=== PATIENT | male | born 1980 | race Caucasian/White ===

== ENCOUNTER 2021-02-08 13:49 | Emergency (ER) | payer SELFPAY ==
[~2021-02-08] VITALS: Ht 195 cm; Wt 90.7 kg
--- NOTE | 2021-02-08 15:11 | ED EENT ---
History of Present Illness General Chief Complaint: Oral/Throat Problems Stated Complaint: SOB,SORE THROAT Nursing Triage Note: PT PRESENTS TO ED VIA POV FROM [facility] WITH COMPLAINTS OF SORE THROAT X 4-5 DAYS. PT ALSO REPORTS SOME SOA. Source: patient Exam Limitations: no limitations History of Present Illness Date Seen by Provider: Feb 08, 2021 Time Seen by Provider: 15:10 Initial Comments To ER with a sore throat that began 4 days ago. He then noticed some enlarged swollen lymph nodes under the mandible mostly on the right side. Timing/Duration: abrupt Severity: moderate Location: throat Prearrival Treatment: no prearrival treatment Associated Symptoms: denies symptoms Allergies and Home Medications Allergies Coded Allergies: No Known Drug Allergies (Unverified , 02/08/21) Patient Home Medication List Home Medication List Reviewed: Yes Review of Systems Review of Systems Constitutional: see HPI; No chills, No fever Eyes: No Symptoms Reported Ears: No Symptoms Reported Nose: no symptoms reported Mouth: no symptoms reported Throat: no symptoms reported Respiratory: no symptoms reported Cardiovascular: no symptoms reported Musculoskeletal: no symptoms reported Past Bezzubq-Wisuua-Jihsuf Hx Patient Social History Tobacco Use?: Yes Tobacco type used: Cigarettes Smoking Status: Current Everyday Smoker Substance use?: No Alcohol Use?: Yes Alcohol Frequency: Once in a while Physical Exam Vital Signs Vital Signs - First Documented 02/08/21 14:25 Temp 36.4 Pulse 100 Resp 18 B/P (MAP) 120/95 (103) Pulse Ox 98 Height, Weight, BMI Height: '" Weight: lbs. oz. kg; 23.00 BMI Method: General Appearance: WD/WN, no apparent distress Eyes: bilateral eye normal inspection, bilateral eye PERRL, bilateral eye EOMI Ears: bilateral ear auricle normal, bilateral ear canal normal, bilateral ear TM normal Mouth/Throat: mandibular swelling, other (Minimal pharyngeal erythema without exudate or apparent uvular deviation. There is significantly enlarged submandibular lymph node mostly on the right and a submental lymph node palpable as well.) Neck: non-tender, full range of motion Respiratory: normal breath sounds, no respiratory distress, no accessory muscle use Neurologic/Psychiatric: alert, normal mood/affect, oriented x 3 Skin: normal color, warm/dry Progress/Results/Core Measures Results/Orders Lab Results Laboratory Tests Test 02/08/21 14:17 02/08/21 15:16 Range/Units Influenza Type A (RT-PCR) Not Detected Not Detecte Influenza Type B (RT-PCR) Not Detected Not Detecte SARS-CoV-2 RNA (RT-PCR) Not Detected Not Detecte Group A Streptococcus Screen NEGATIVE NEGATIVE White Blood Count 17.4 H 4.3-11.0 10^3/uL Red Blood Count 5.40 4.30-5.52 10^6/uL Hemoglobin 17.6 13.3-17.7 g/dL Hematocrit 52 40-54 % Mean Corpuscular Volume 96 80-99 fL Mean Corpuscular Hemoglobin 33 25-34 pg Mean Corpuscular Hemoglobin Concent 34 32-36 g/dL Red Cell Distribution Width 13.0 10.0-14.5 % Platelet Count 303 130-400 10^3/uL Mean Platelet Volume 8.5 L 9.0-12.2 fL Immature Granulocyte % (Auto) 0 % Neutrophils (%) (Auto) 78 H 42-75 % Lymphocytes (%) (Auto) 12 12-44 % Monocytes (%) (Auto) 9 0-12 % Eosinophils (%) (Auto) 1 0-10 % Basophils (%) (Auto) 0 0-10 % Neutrophils # (Auto) 13.5 H 1.8-7.8 X 10^3 Lymphocytes # (Auto) 2.1 1.0-4.0 X 10^3 Monocytes # (Auto) 1.5 H 0.0-1.0 X 10^3 Eosinophils # (Auto) 0.2 0.0-0.3 10^3/uL Basophils # (Auto) 0.1 0.0-0.1 10^3/uL Immature Granulocyte # (Auto) 0.0 0.0-0.1 10^3/uL Neutrophils % (Manual) 72 % Lymphocytes % (Manual) 13 % Monocytes % (Manual) 11 % Band Neutrophils 4 % Blood Morphology Comment NORMAL Sodium Level 136 135-145 MMOL/L Potassium Level 4.8 3.6-5.0 MMOL/L Chloride Level 100 98-107 MMOL/L Carbon Dioxide Level 23 21-32 MMOL/L Anion Gap 13 5-14 MMOL/L Blood Urea Nitrogen 9 7-18 MG/DL Creatinine 0.96 0.60-1.30 MG/DL Estimat Glomerular Filtration Rate 86 BUN/Creatinine Ratio 9 Glucose Level 92 70-105 MG/DL Calcium Level 10.3 H 8.5-10.1 MG/DL Corrected Calcium 8.5-10.1 MG/DL Total Bilirubin 1.1 H 0.1-1.0 MG/DL Aspartate Amino Transf (AST/SGOT) 33 5-34 U/L Alanine Aminotransferase (ALT/SGPT) 45 0-55 U/L Alkaline Phosphatase 75 40-136 U/L Total Protein 8.5 H 6.4-8.2 GM/DL Albumin 4.6 H 3.2-4.5 GM/DL Procalcitonin 0.05 <0.10 NG/ML Monoscreen NEGATIVE NEGATIVE My Orders Orders - CALISTA GUPTA [employer] Cbc With Automated Diff (02/08/21 15:21) Comprehensive Metabolic Panel (02/08/21 15:21) Ed Iv/Invasive Line Start (02/08/21 15:21) Monotest (02/08/21 15:21) Ct Neck (Soft Tissue) W (02/08/21 15:21) Ketorolac Injection (Toradol Injection) (02/08/21 15:30) Dexamethasone Injection (Decadron Inje (02/08/21 15:30) Ceftriaxone (Rocephin) (02/08/21 15:30) Iohexol Injection (Omnipaque 350 Mg/Ml 1 (02/08/21 15:45) Received Contrast (Hold Metformin- Contr (02/08/21 15:45) Ns (Ivpb) (Sodium Chloride 0.9% Ivpb Bag (02/08/21 15:45) Manual Differential (02/08/21 15:16) Procalcitonin (Pct) (02/08/21 15:40) Medications Given in ED Current Medications Medications Dose Ordered Sig/Espinoza Route Start Time Stop Time Status Last Admin Dose Admin Ceftriaxone Sodium 1000 mg/ Sterile Water 10 ml @ 200 mls/hr ONCE ONCE IV 02/08/21 15:30 02/08/21 15:32 DC 02/08/21 15:35 200 MLS/HR Dexamethasone Sodium Phosphate 10 mg ONCE ONCE IV 02/08/21 15:30 02/08/21 15:31 DC 02/08/21 15:35 10 MG Iohexol 75 ml ONCE ONCE IV 02/08/21 15:45 02/08/21 15:46 DC 02/08/21 15:49 75 ML Ketorolac Tromethamine 15 mg ONCE ONCE IVP 02/08/21 15:30 02/08/21 15:31 DC 02/08/21 15:36 15 MG Sodium Chloride 100 ml ONCE ONCE IV 02/08/21 15:45 02/08/21 15:46 DC 02/08/21 15:49 80 ML Vital Signs/I&O 02/08/21 14:25 Temp 36.4 Pulse 100 Resp 18 B/P (MAP) 120/95 (103) Pulse Ox 98 Blood Pressure Mean: 103 Departure Communication (Admissions) 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 BB placed in the area of concern. No history of cancer. EXAM: Axial CT scan of the neck soft tissue performed with 75 mL of Omnipaque 350 IV contrast. Sagittal and coronal reformatted images were created. Auto Exposure Controls were utilized during the CT exam to meet ALARA standards for radiation dose reduction. COMPARISON: None. FINDINGS: The nasopharynx, oropharynx, hypopharynx and laryngeal soft tissue structures are unremarkable and symmetric. The visualized portions of the lower cavity, tongue and sublingual regions are unremarkable. There is fat stranding along the right side of the neck extending from the right submandibular region to the level of thyroid. There is also thickening of the right platysmas muscle. There is minimal fat stranding on the left side of the lower neck region. There is bilateral lymphadenopathy seen. Largest marker lymph node in the left neck in the 2A region measures 2.1 cm x 1.1 cm. There is no bony erosive or destructive process involving the right mandibular or maxillary region. The right submandibular gland is mildly prominent compared to left side. There is inflammation adjacent to this right parotid gland. There are no salivary gland stones seen. Remainder of the parotid glands are unremarkable. Thyroid gland is unremarkable. Visualized upper lung becerra are clear. Cervical spine is unremarkable. Limited visualization of the intracranial structures is unremarkable. IMPRESSION: 1: There is a moderate amount of soft tissue swelling involving the right side of the neck and small amount involving the left side of neck and there is bilateral cervical lymphadenopathy. There is mild prominence of the right submandibular gland. Unknown if this is related to sialadenitis or adjacent reactive changes to the right submandibular gland. There is no stone or mass seen. There is no neck soft tissue abscess. 2: There is no bony destructive process involving the right mandibular region and the teeth are not well visualized on this exam. Clinical correlation for dental concern is suggested. 3: There is no other significant abnormality. Dictated on workstation # [id number] Dict: 02/08/21 1627 Trans: 02/08/21 1639 [facility] [id number] Interpreted by: JAMIE ARNDT MD Electronically signed by: Impression Primary Impression: Lymphadenopathy Disposition: 01 HOME, SELF-CARE Condition: Stable Departure-Patient Inst. Decision time for Depature: 15:10 Referrals: UNKNOWN (PCP) Primary Care Physician Patient Instructions: Viral Pharyngitis (DC) Add. Discharge Instructions: 1. Antibiotics and steroids as directed. Follow-up with your doctor this week for recheck and to ensure improvement Scripts Prednisone (Prednisone) 20 Mg Tab 40 MG PO DAILY, #8 TAB 0 Refills Prov: CALISTA GUPTA APRN 02/08/21 Amoxicillin/Potassium Clav (Augmentin 875-125 Tablet) 1 Each Tablet 1 EACH PO BID, #14 TAB 0 Refills Prov: CALISTA GUPTA APRN 02/08/21 Work/School Note: Work Release Form Date Seen in the Emergency Department: Feb 08, 2021 Return to Work: Feb 11, 2021 CALISTA GUPTA APRN Feb 08, 2021 15:11
[2021-02-08] MEDS ORDERED: cefTRIAXone 1,000 MG in WATER (STERILE) FOR INJECTION 10 ML IV ONE (15:30)
[2021-02-08] MEDS ORDERED: KETOROLAC 30 MG/ML VIAL IVP ONE (15:30)
[2021-02-08 15:37] LABS: BASOPHILS # (AUTO) 0.1 10^3/uL (0.0-0.1); BASOPHILS % (AUTO) 0 % (0-10); EOSINOPHILS # (AUTO) 0.2 10^3/uL (0.0-0.3); EOSINOPHILS % (AUTO) 1 % (0-10); HEMATOCRIT 52 % (40-54); HEMOGLOBIN 17.6 g/dL (13.3-17.7); LYMPHOCYTES # (AUTO) 2.1 X 10^3 (1.0-4.0); LYMPHOCYTES % (AUTO) 12 % (12-44); MEAN CORPUSCULAR HEMOGLOBIN 33 pg (25-34); MEAN CORPUSCULAR HGB CONC 34 g/dL (32-36); MEAN CORPUSCULAR VOLUME 96 fL (80-99); MEAN PLATELET VOLUME 8.5 fL (9.0-12.2); MONOCYTES # (AUTO) 1.5 X 10^3 (0.0-1.0); MONOCYTES % (AUTO) 9 % (0-12); NEUTROPHILS # (AUTO) 13.5 X 10^3 (1.8-7.8); NEUTROPHILS % (AUTO) 78 % (42-75); PLATELET COUNT 303 10^3/uL (130-400); WHITE BLOOD COUNT 17.4 10^3/uL (4.3-11.0)
[2021-02-08 15:38] LABS: ALBUMIN 4.6 GM/DL (3.2-4.5); CHLORIDE 100 MMOL/L (98-107); POTASSIUM 4.8 MMOL/L (3.6-5.0); SODIUM 136 MMOL/L (135-145)
[2021-02-08 15:39] LABS: CALCIUM 10.3 MG/DL (8.5-10.1)
[2021-02-08 15:41] LABS: GLUCOSE 92 MG/DL (70-105); TOTAL PROTEIN 8.5 GM/DL (6.4-8.2)
[2021-02-08 15:42] LABS: BILIRUBIN,TOTAL 1.1 MG/DL (0.1-1.0); CARBON DIOXIDE 23 MMOL/L (21-32)
[2021-02-08 15:44] LABS: ALKALINE PHOSPHATASE 75 U/L (40-136); CREATININE SERUM 0.96 MG/DL (0.60-1.30); GFR ESTIMATED 86
[2021-02-08 15:45] LABS: BUN/CREATININE RATIO 9
[2021-02-08] MEDS ORDERED: NS 100 ML (IVPB) BAG IV ONE (15:45)
[2021-02-08] MEDS ORDERED: HOLD METFORMIN - RECEIVED CONTRAST 20 ML VIAL IV SCH (15:45)
[2021-02-08] MEDS ORDERED: IOHEXOL 350 MG/ML 100 ML (OMNIPAQUE 350) VIAL IV ONE (15:45)
[2021-02-08 15:47] LABS: ALANINE AMINOTRANSFERASE 45 U/L (0-55)
[2021-02-08 16:10] LABS: BAND NEUTROPHILS 4 %; LYMPHOCYTES % (MANUAL) 13 %; MONOCYTES % (MANUAL) 11 %; NEUTROPHILS % (MANUAL) 72 %
[2021-02-08 16:11] LABS: RBC MORPH NORMAL
--- NOTE | 2021-02-08 16:40 | Diagnostic Imaging Report ---
CLINICAL INDICATION: Patient with swollen neck, greater on the right. BB placed in the area of concern. No history of cancer. EXAM: Axial CT scan of the neck soft tissue performed with 75 mL of Omnipaque 350 IV contrast. Sagittal and coronal reformatted images were created. Auto Exposure Controls were utilized during the CT exam to meet ALARA standards for radiation dose reduction. COMPARISON: None. FINDINGS: The nasopharynx, oropharynx, hypopharynx and laryngeal soft tissue structures are unremarkable and symmetric. The visualized portions of the lower cavity, tongue and sublingual regions are unremarkable. There is fat stranding along the right side of the neck extending from the right submandibular region to the level of thyroid. There is also thickening of the right platysmas muscle. There is minimal fat stranding on the left side of the lower neck region. There is bilateral lymphadenopathy seen. Largest marker lymph node in the left neck in the 2A region measures 2.1 cm x 1.1 cm. There is no bony erosive or destructive process involving the right mandibular or maxillary region. The right submandibular gland is mildly prominent compared to left side. There is inflammation adjacent to this right parotid gland. There are no salivary gland stones seen. Remainder of the parotid glands are unremarkable. Thyroid gland is unremarkable. Visualized upper lung becerra are clear. Cervical spine is unremarkable. Limited visualization of the intracranial structures is unremarkable. IMPRESSION: 1: There is a moderate amount of soft tissue swelling involving the right side of the neck and small amount involving the left side of neck and there is bilateral cervical lymphadenopathy. There is mild prominence of the right submandibular gland. Unknown if this is related to sialadenitis or adjacent reactive changes to the right submandibular gland. There is no stone or mass seen. There is no neck soft tissue abscess. 2: There is no bony destructive process involving the right mandibular region and the teeth are not well visualized on this exam. Clinical correlation for dental concern is suggested. 3: There is no other significant abnormality. Dictated by: Dictated on workstation # [id number]
[2021-02-08] MEDS ORDERED: PRD20T PO (16:46)
[2021-02-08] MEDS ORDERED: AMOX-358 PO (16:46)
[2021-02-08 16:51] VITALS: BP 120/95
== END 2021-02-08 16:50 | disposition home or self-care (01) ==
LOC: ER 13:56
DX: R59.1 Generalized enlarged lymph nodes (principal); F17.210 Nicotine dependence, cigarettes, uncomplicated; Z20.822 Contact with and (suspected) exposure to COVID-19
CPT/HCPCS: 36415; 70491; 80053; 84145; 85007; 85027; 86308; 87430; 87636

== ENCOUNTER 2021-10-28 03:30 | Inpatient (IN) | payer SELFPAY ==
[~2021-10-28] VITALS: Ht 195.5 cm; Wt 95.6 kg
[~2021-10-28 03:30] MED LIST: AMOX-358 PO; PRD20T PO
[2021-10-28] MEDS ORDERED: LACTATED RINGERS 1,000 ML IV ONE (04:00)
[2021-10-28] MEDS ORDERED: fentaNYL INJ 100 MCG/2 ML AMP IVP ONE (04:00)
[2021-10-28] MEDS ORDERED: FAMOTIDINE 20MG/2ML IV (PEPCID) IVP ONE (04:00)
[2021-10-28] MEDS ORDERED: ONDANSETRON 4 MG/2 ML (SDV) Z0FRAN IVP ONE (04:00)
[2021-10-28] MEDS ORDERED: LORazepam INJ 2 MG/ML (ATIVAN) VIAL IVP ONE (04:00)
[2021-10-28 04:04] LABS: BASOPHILS % (AUTO) 0 % (0-10); EOSINOPHILS # (AUTO) 0.1 10^3/uL (0.0-0.3); EOSINOPHILS % (AUTO) 1 % (0-10); HEMATOCRIT 45 % (40-54); LYMPHOCYTES # (AUTO) 1.1 10^3/uL (1.0-4.0); LYMPHOCYTES % (AUTO) 11 % (12-44); MEAN CORPUSCULAR HEMOGLOBIN 35 pg (25-34); MEAN CORPUSCULAR HGB CONC 36 g/dL (32-36); MEAN CORPUSCULAR VOLUME 96 fL (80-99); MEAN PLATELET VOLUME 8.7 fL (9.0-12.2); MONOCYTES # (AUTO) 0.8 10^3/uL (0.0-1.0); MONOCYTES % (AUTO) 9 % (0-12); NEUTROPHILS # (AUTO) 7.7 10^3/uL (1.8-7.8); NEUTROPHILS % (AUTO) 78 % (42-75); PLATELET COUNT 186 10^3/uL (130-400); WHITE BLOOD COUNT 9.8 10^3/uL (4.3-11.0)
[2021-10-28 04:14] LABS: ALBUMIN 3.9 GM/DL (3.2-4.5); CHLORIDE 102 MMOL/L (98-107); POTASSIUM 3.5 MMOL/L (3.6-5.0); SODIUM 139 MMOL/L (135-145)
[2021-10-28 04:16] LABS: CALCIUM 9.2 MG/DL (8.5-10.1)
[2021-10-28 04:17] LABS: GLUCOSE 126 MG/DL (70-105); TOTAL PROTEIN 6.7 GM/DL (6.4-8.2)
[2021-10-28 04:18] LABS: CARBON DIOXIDE 21 MMOL/L (21-32)
[2021-10-28 04:19] LABS: BILIRUBIN,TOTAL 1.6 MG/DL (0.1-1.0)
[2021-10-28 04:20] LABS: ALKALINE PHOSPHATASE 47 U/L (40-136)
[2021-10-28 04:21] LABS: CREATININE SERUM 0.76 MG/DL (0.60-1.30); GFR ESTIMATED 115
[2021-10-28 04:22] LABS: BUN/CREATININE RATIO 14
[2021-10-28 04:23] LABS: ALANINE AMINOTRANSFERASE 72 U/L (0-55); MAGNESIUM 1.6 MG/DL (1.6-2.4)
--- NOTE | 2021-10-28 04:37 | ED Abdominal Pain ---
General Chief Complaint: Abdominal/GI Problems Stated Complaint: ABD PAIN Nursing Triage Note: PT AMBULATED TO RM 5. PT STATES HE HAS HAD UPPER ABDOMINAL PAIN LASTING THREE DAYS WITH NAUSEA AND VOMITING. PT STATES HE "BELIEVES HE HAS PANCREATITIS." Source of Information: Patient Exam Limitations: No Limitations History of Present Illness Date Seen by Provider: October 28, 2021 Time Seen by Provider: 03:46 Initial Comments This 46-year-old gentleman presents to the emergency room with 3 days of upper abdominal pain, nausea, and vomiting. He is accustomed to drinking about a pint of hard alcohol daily. He has not had any alcohol in the past 2 days. He does have history of pancreatitis. He denies any diarrhea, constipation, fever, or urinary changes. He has taken a couple of aspirin but no other medications to treat his symptoms. Allergies and Home Medications Allergies Coded Allergies: No Known Drug Allergies (Unverified , 02/08/21) Patient Home Medication List Home Medication List Reviewed: Yes No Active Prescriptions or Reported Meds Review of Systems Review of Systems Constitutional: no symptoms reported EENTM: No Symptoms Reported Respiratory: No Symptoms Reported Cardiovascular: No Symptoms Reported Gastrointestinal: See HPI Genitourinary: No Symptoms Reported Musculoskeletal: no symptoms reported Skin: no symptoms reported Psychiatric/Neurological: No Symptoms Reported Endocrine: No Symptoms Reported Hematologic/Lymphatic: No Symptoms Reported Past Zthumjx-Qnndgy-Gzqbct Hx Patient Social History Tobacco Use?: Yes Tobacco type used: Cigarettes Smoking Status: Current Everyday Smoker Use of E-Cig and/or Vaping dev: No Substance use?: Yes Substance type: Marijuana Alcohol Use?: Yes Alcohol type: Hard Liquor Alcohol Frequency: Daily Immunizations Up To Date Influenza Vaccine Up-to-Date: No; Not Current Past Medical History Surgeries: No Respiratory: No Cardiac: No Neurological: No Genitourinary: No Gastrointestinal: Yes Pancreatitis Musculoskeletal: No Endocrine: No HEENT: No Cancer: No Psychosocial: Yes (Alcohol dependence) Integumentary: No Physical Exam Vital Signs Vital Signs - First Documented 10/28/21 04:18 Temp 36.8 Pulse 67 B/P (MAP) 161/90 (113) Pulse Ox 100 O2 Delivery Room Air Capillary Refill : Height/Weight/BMI Height: '" Weight: lbs. oz. 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, no motor/sensory deficits, alert, oriented x 3, other (Fine tremor) Skin: normal color, warm/dry Progress/Results/Core Measures Results/Orders Lab Results Laboratory Tests Test 10/28/21 03:53 Range/Units White Blood Count 9.8 4.3-11.0 10^3/uL Red Blood Count 4.63 4.30-5.52 10^6/uL Hemoglobin 16.0 13.3-17.7 g/dL Hematocrit 45 40-54 % Mean Corpuscular Volume 96 80-99 fL Mean Corpuscular Hemoglobin 35 H 25-34 pg Mean Corpuscular Hemoglobin Concent 36 32-36 g/dL Red Cell Distribution Width 12.3 10.0-14.5 % Platelet Count 186 130-400 10^3/uL Mean Platelet Volume 8.7 L 9.0-12.2 fL Immature Granulocyte % (Auto) 0 % Neutrophils (%) (Auto) 78 H 42-75 % Lymphocytes (%) (Auto) 11 L 12-44 % Monocytes (%) (Auto) 9 0-12 % Eosinophils (%) (Auto) 1 0-10 % Basophils (%) (Auto) 0 0-10 % Neutrophils # (Auto) 7.7 1.8-7.8 10^3/uL Lymphocytes # (Auto) 1.1 1.0-4.0 10^3/uL Monocytes # (Auto) 0.8 0.0-1.0 10^3/uL Eosinophils # (Auto) 0.1 0.0-0.3 10^3/uL Basophils # (Auto) 0.0 0.0-0.1 10^3/uL Immature Granulocyte # (Auto) 0.0 0.0-0.1 10^3/uL Prothrombin Time 12.6 12.2-14.7 SEC INR Comment 0.9 0.8-1.4 Sodium Level 139 135-145 MMOL/L Potassium Level 3.5 L 3.6-5.0 MMOL/L Chloride Level 102 98-107 MMOL/L Carbon Dioxide Level 21 21-32 MMOL/L Anion Gap 16 H 5-14 MMOL/L Blood Urea Nitrogen 11 7-18 MG/DL Creatinine 0.76 0.60-1.30 MG/DL Estimat Glomerular Filtration Rate 115 BUN/Creatinine Ratio 14 Glucose Level 126 H 70-105 MG/DL Calcium Level 9.2 8.5-10.1 MG/DL Corrected Calcium 9.3 8.5-10.1 MG/DL Magnesium Level 1.6 1.6-2.4 MG/DL Total Bilirubin 1.6 H 0.1-1.0 MG/DL Aspartate Amino Transf (AST/SGOT) 50 H 5-34 U/L Alanine Aminotransferase (ALT/SGPT) 72 H 0-55 U/L Alkaline Phosphatase 47 40-136 U/L C-Reactive Protein High Sensitivity 0.20 0.00-0.50 MG/DL Total Protein 6.7 6.4-8.2 GM/DL Albumin 3.9 3.2-4.5 GM/DL Lipase 4059 H 8-78 U/L Serum Alcohol < 10 <10 MG/DL My Orders Orders - TRACE PIERSON MD Ua Culture If Indicated (10/28/21 03:46) Fentanyl Inj (Sublimaze Injection) (10/28/21 04:00) Lorazepam Injection (Ativan Injection) (10/28/21 04:00) Famotidine Injection (Pepcid Injection) (10/28/21 04:00) Ondansetron Injection (Zofran Injectio (10/28/21 04:00) Alcohol (10/28/21 03:53) Cbc With Automated Diff (10/28/21 03:53) Comprehensive Metabolic Panel (10/28/21 03:53) Lipase (10/28/21 03:53) Magnesium (10/28/21 03:53) Ed Iv/Invasive Line Start (10/28/21 03:53) Lactated Ringers (Lr 1000 Ml Iv Solution (10/28/21 04:00) Morphine Injection (Morphine Injection (10/28/21 04:59) Hs C Reactive Protein (10/28/21 05:05) Hydromorphone Injection (Dilaudid Inject (10/28/21 05:30) Ct Abdomen/Pelvis W (10/28/21 05:30) Iohexol Injection (Omnipaque 350 Mg/Ml 1 (10/28/21 05:45) Received Contrast (Hold Metformin- Contr (10/28/21 05:45) Sodium Chloride Flush (Catheter Flush Sy (10/28/21 05:45) Ns (Ivpb) (Sodium Chloride 0.9% Ivpb Bag (10/28/21 05:45) Protime With Inr (10/28/21 05:37) Medications Given in ED Vital Signs/I&O 10/28/21 04:18 Temp 36.8 Pulse 67 B/P (MAP) 161/90 (113) Pulse Ox 100 O2 Delivery Room Air Blood Pressure Mean: 113 Progress Progress Note #1: Time: 04:34 Progress Note Patient was seen and examined when roomed. Symptoms are being treated with Pepcid, Zofran, and fentanyl. Ativan is being given as he appears to be experiencing some withdrawal with hypertension and fine tremor. IV fluids are infusing. Labs are pending. Progress Note #2: Time: 05:33 Progress Note There is a notable pancreatitis with lipase greater than 4000. Transaminases are minimally elevated and bilirubin is 1.6. Patient has required additional doses of pain medication. Morphine 5 mg was given. He is still squirming in pain. We will give him Dilaudid 0.5 mg to help him hold still during CT scan. Diagnostic Imaging Diagonstic Imaging: CT Plain Films/CT/US/NM/MRI: abdomen, pelvis Comments CT abdomen pelvis viewed by me. Report pending at 0606. Inflammatory changes noted around the pancreas without obvious necrosis or pseudocyst. No biliary dilatation noted. Gallbladder appears normal. 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 TECHNIQUE: Multiple contiguous axial images were obtained through the abdomen and pelvis after the uneventful administration of intravenous contrast. All CT scans use one or more of the following dose optimizing techniques: automated exposure control, MA and/or KvP adjustment based on patient size and exam type or iterative reconstruction. HISTORY: Abdominal pain. Pancreatitis. COMPARISON: None available. FINDINGS: The heart is unremarkable. Dependent atelectasis is seen in the lung bases. There is edema and inflammation surrounding the entirety of the pancreas. No focal pancreatic lesions are identified. No loculated collections are seen to suggest pseudocyst formation. The splenic vein is patent. No evidence of pseudoaneurysm of the splenic artery. There is normal enhancement throughout the pancreas. No pancreatic ductal dilation is seen. Small amount of calcifications are seen within the pancreatic head. A small volume of ascites is seen in the upper abdomen. There is hepatic steatosis. No focal hepatic lesions. The portal vein is patent. The gallbladder is unremarkable. The spleen, adrenal glands, and kidneys have a normal appearance. There is no pathologically enlarged mesenteric or retroperitoneal adenopathy. The bowel loops are nondilated. The appendix is visualized in the right lower quadrant and has a normal appearance. Scattered diverticula are seen in the sigmoid and descending colon without evidence of acute diverticulitis. No evidence of free air. No acute osseous abnormalities. Ureters and bladder are grossly normal. There is no free air, loculated collection, or adenopathy in the pelvis. IMPRESSION: 1. Acute edematous interstitial pancreatitis. No focal pancreatic lesions. Recommend continued follow-up as indicated. 2. Calcifications within the head of the pancreas, suggestive of sequelae of chronic pancreatitis. 3. Small volume of ascites in the upper abdomen. 4. Hepatic steatosis. 5. Scattered diverticula without evidence of acute diverticulitis. Dictated by: Dictated on workstation # [id number] Dict: 10/28/21606 Trans: 10/28/2125 [facility] [phone] Interpreted by: KATHRIN CROOK DO Electronically signed by: KATHRIN CROOK DO 10/28/21 0625 Departure Communication (Admissions) Time/Spoke to Admitting Phy: 06:05 Dr. Zaldivar Impression Primary Impression: Acute pancreatitis Qualified Codes: K85.20 - Alcohol induced acute pancreatitis without necrosis or infection Additional Impressions: Alcohol dependence Qualified Codes: F10.288 - Alcohol dependence with other alcohol-induced disorder Nausea & vomiting Qualified Codes: R11.2 - Nausea with vomiting, unspecified Disposition: ADMITTED INPATIENT Condition: Stable Admissions Decision to Admit Reason: Admit from ER (General) Decision to Admit/Date: October 28, 2021 Time/Decision to Admit Time: 06:05 Departure-Patient Inst. Referrals: NO,LOCAL PHYSICIAN (PCP/Family) Primary Care Physician Scripts No Active Prescriptions or Reported Meds TRACE PIERSON MD October 28, 2021 04:37
[2021-10-28] MEDS ORDERED: morphine INJ 10 MG/ML 1ML (SYR OR VIAL) IVP STA (04:59)
[2021-10-28 05:09] LABS: LIPASE 4059 U/L (8-78)
[2021-10-28] MEDS ORDERED: HYDROmorphone 2 MG/ML VIAL (DILAUDID) IV ONE (05:30)
[2021-10-28] MEDS ORDERED: CATHETER FLUSH 10 ML SYR IV PRN (05:45)
[2021-10-28] MEDS ORDERED: NS 100 ML (IVPB) BAG IV ONE (05:45)
[2021-10-28] MEDS ORDERED: HOLD METFORMIN - RECEIVED CONTRAST 20 ML VIAL IV SCH (05:45)
[2021-10-28] MEDS ORDERED: IOHEXOL 350 MG/ML 100 ML (OMNIPAQUE 350) VIAL IV ONE (05:45)
[2021-10-28 05:56] LABS: INR 0.9 (0.8-1.4); PROTHROMBIN TIME PATIENT 12.6 SEC (12.2-14.7)
--- NOTE | 2021-10-28 06:12 | Diagnostic Imaging Report ---
EXAMINATION: CT abdomen and pelvis with intravenous contrast. TECHNIQUE: Multiple contiguous axial images were obtained through the abdomen and pelvis after the uneventful administration of intravenous contrast. All CT scans use one or more of the following dose optimizing techniques: automated exposure control, MA and/or KvP adjustment based on patient size and exam type or iterative reconstruction. HISTORY: Abdominal pain. Pancreatitis. COMPARISON: None available. FINDINGS: The heart is unremarkable. Dependent atelectasis is seen in the lung bases. There is edema and inflammation surrounding the entirety of the pancreas. No focal pancreatic lesions are identified. No loculated collections are seen to suggest pseudocyst formation. The splenic vein is patent. No evidence of pseudoaneurysm of the splenic artery. There is normal enhancement throughout the pancreas. No pancreatic ductal dilation is seen. Small amount of calcifications are seen within the pancreatic head. A small volume of ascites is seen in the upper abdomen. There is hepatic steatosis. No focal hepatic lesions. The portal vein is patent. The gallbladder is unremarkable. The spleen, adrenal glands, and kidneys have a normal appearance. There is no pathologically enlarged mesenteric or retroperitoneal adenopathy. The bowel loops are nondilated. The appendix is visualized in the right lower quadrant and has a normal appearance. Scattered diverticula are seen in the sigmoid and descending colon without evidence of acute diverticulitis. No evidence of free air. No acute osseous abnormalities. Ureters and bladder are grossly normal. There is no free air, loculated collection, or adenopathy in the pelvis. IMPRESSION: 1. Acute edematous interstitial pancreatitis. No focal pancreatic lesions. Recommend continued follow-up as indicated. 2. Calcifications within the head of the pancreas, suggestive of sequelae of chronic pancreatitis. 3. Small volume of ascites in the upper abdomen. 4. Hepatic steatosis. 5. Scattered diverticula without evidence of acute diverticulitis. Dictated by: Dictated on workstation # [id number]
[2021-10-28 06:37] LABS: BILIRUBIN,URINE NEGATIVE (NEGATIVE); CLARITY,URINE CLEAR; COLOR,URINE YELLOW; GLUCOSE, URINE (UA) NEGATIVE (NEGATIVE); KETONES,URINE 2+ (NEGATIVE); LEUKOCYTE ESTERASE ,URINE NEGATIVE (NEGATIVE); NITRITE,URINE NEGATIVE (NEGATIVE); PH,URINE 7.5 (5-9); PROTEIN,URINE NEGATIVE (NEGATIVE)
[2021-10-28] MEDS ORDERED: HYDROmorphone 2 MG/ML VIAL (DILAUDID) IV STA (06:41)
[2021-10-28 06:48] LABS: BACTERIA,URINE NEGATIVE /HPF; SQUAMOUS EPITHELIAL CELL,UR 0-2 /HPF; WBC,URINE 0-2 /HPF
[2021-10-28 07:43] VITALS: BP 168/87
[2021-10-28] MEDS ORDERED: HYDROmorphone 2 MG/ML VIAL (DILAUDID) IV PRN (09:00)
[2021-10-28] MEDS ORDERED: morphine INJ 4 MG/ML 1 ML (VIAL/SYRINGE) IVP PRN (09:00)
[2021-10-28] MEDS: D5 1/2 NS W/KCL 20 MEQ/L 1,000 ML IV SCH ×3 (09:28→23:25)
[2021-10-28] MEDS: FAMOTIDINE 20MG/2ML IV (PEPCID) IVP SCH ×2 (09:36→21:07)
[2021-10-28] MEDS: THIAMINE INJECTION 100 MG, FOLIC ACID INJECTION 1 MG, VITAMIN MULTI INJECTION 10 ML, MA... IV SCH ×5 (09:36)
--- NOTE | 2021-10-28 10:51 | History & Physical-Hospitalist ---
History of Present Illness HPI/Chief Complaint Patient is a 41-year-old male with past medical history of alcohol abuse, pancreatitis, tobacco abuse who presented to the emergency department due to abdominal pain. He states that this started roughly 3 days ago and feels similar to the last time he had pancreatitis. Last episode of this was roughly 8 years ago. He has continued to drink and drinks about a pint of alcohol per day. His last drink was 2 days ago. He does have a history of alcohol withdrawal including seizures and tremors. He does have some nausea as well right now. Source: patient Exam Limitations: no limitations Date Seen 10/28/21 Time Seen by a Provider: 10:47 Attending Physician Selvin Zaldivar MD PCP No,Local Physician Referring Physician Date of Admission October 28, 2021 at 06:05 Home Medications & Allergies Home Medications Reviewed patient Home Medication Reconciliation performed by pharmacy medication reconciliations crane service technician and/or nursing. Patients Allergies have been reviewed. Allergies Allergies Coded Allergies No Known Drug Allergies (Unverified02/08/21) Past Regipvn-Tripwn-Bldqqy Hx Patient Social History Tobacco Use?: Yes Tobacco type used: Cigarettes Smoking Status: Current Everyday Smoker (1ppd) Smokeless Tobacco Frequency: Current Everyday User Use of E-Cig and/or Vaping dev: No Substance use?: Yes Substance type: Marijuana Substance frequency: Daily Alcohol Use?: Yes Alcohol type: Hard Liquor Alcohol Frequency: Daily (1 pint per day) Pt feels they are or have been: No Current Status Advance Directives: No Communicates: Verbally Primary Language: Syrian Preferred Spoken Language: Syrian Is interpretation needed?: No Implanted or Applied Medical D: None Past Medical History Pancreatitis Family Medical History Reviewed Nursing Family Hx No Pertinent Family Hx Review of Systems Constitutional: No chills, No fever EENTM: no symptoms reported Respiratory: no symptoms reported Cardiovascular: no symptoms reported Gastrointestinal: abdominal pain, nausea, vomiting Genitourinary: no symptoms reported Musculoskeletal: no symptoms reported Skin: no symptoms reported Psychiatric/Neurological: No Symptoms Reported Physical Exam Physical Exam Vital Signs Vital Signs - First Documented 10/28/21 10/28/21 04:18 06:49 Temp 36.8 Pulse 67 Resp 16 B/P (MAP) 161/90 (113) Pulse Ox 100 O2 Delivery Room Air Capillary Refill : Height, Weight, BMI Height: '" Weight: lbs. oz. kg; 23.73 BMI Method: General Appearance: No Apparent Distress, WD/WN HEENT: PERRL/EOMI, Moist Mucous Membranes; No Scleral Icterus (L), No Scleral Icterus (R) Respiratory: Lungs Clear, No Accessory Muscle Use, No Respiratory Distress Cardiovascular: Regular Rate, Rhythm, No JVD, No Murmur Gastrointestinal: Normal Bowel Sounds, Soft; No Distended, No Guarding, No Rebound; Tenderness (mild and diffuse but worse in epigastric area) Extremity: No Calf Tenderness, No Pedal Edema Neurologic/Psychiatric: Alert, Oriented x3, Normal Mood/Affect Skin: Normal Color, Warm/Dry Results Results/Procedures Labs Laboratory Tests 10/28/21 03:53 10/29/21 05:22 Patient resulted labs reviewed. Imaging: Reviewed Imaging Report Imaging [facility] [place], [place] NAME: BERNADETTE FOREMAN [facility] REC#: [id number] PT STATUS: REG ER : 1980 PHYSICIAN: TRACE PIERSON MD ADMIT DATE: 10/28/21/ER Signed Date of Exam:10/28/21 CT ABDOMEN/PELVIS W EXAMINATION: CT abdomen and pelvis with intravenous contrast. TECHNIQUE: Multiple contiguous axial images were obtained through the abdomen and pelvis after the uneventful administration of intravenous contrast. All CT scans use one or more of the following dose optimizing techniques: automated exposure control, MA and/or KvP adjustment based on patient size and exam type or iterative reconstruction. HISTORY: Abdominal pain. Pancreatitis. COMPARISON: None available. FINDINGS: The heart is unremarkable. Dependent atelectasis is seen in the lung bases. There is edema and inflammation surrounding the entirety of the pancreas. No focal pancreatic lesions are identified. No loculated collections are seen to suggest pseudocyst formation. The splenic vein is patent. No evidence of pseudoaneurysm of the splenic artery. There is normal enhancement throughout the pancreas. No pancreatic ductal dilation is seen. Small amount of calcifications are seen within the pancreatic head. A small volume of ascites is seen in the upper abdomen. There is hepatic steatosis. No focal hepatic lesions. The portal vein is patent. The gallbladder is unremarkable. The spleen, adrenal glands, and kidneys have a normal appearance. There is no pathologically enlarged mesenteric or retroperitoneal adenopathy. The bowel loops are nondilated. The appendix is visualized in the right lower quadrant and has a normal appearance. Scattered diverticula are seen in the sigmoid and descending colon without evidence of acute diverticulitis. No evidence of free air. No acute osseous abnormalities. Ureters and bladder are grossly normal. There is no free air, loculated collection, or adenopathy in the pelvis. IMPRESSION: 1. Acute edematous interstitial pancreatitis. No focal pancreatic lesions. Recommend continued follow-up as indicated. 2. Calcifications within the head of the pancreas, suggestive of sequelae of chronic pancreatitis. 3. Small volume of ascites in the upper abdomen. 4. Hepatic steatosis. 5. Scattered diverticula without evidence of acute diverticulitis. Dictated by: Dictated on workstation # [id number] Dict: 10/28/21606 Trans: 10/28/21624 UMBERTO [id number] Interpreted by: KATHRIN CROOK DO Electronically signed by: KATHRIN CROOK DO 10/28/21624 Assessment/Plan Admission Diagnosis Acute pancreatitis Admission Status: Inpatient Order (span 2 midnights) Reason for Inpatient Admission: see below Assessment and Plan Acute pancreatitis Continue IV pain meds IVF NPO May have sips of water and discussed rational for NPO status with patient Alcohol abuse [facility] protocol History of withdrawal and seizure Seizure precautions 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, 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 Tobacco abuse Recommended cessation Nicotine patch prn DVT ppx: Lovenox Diagnosis/Problems Diagnosis/Problems (1) Acute pancreatitis Status: Acute Qualifiers: Pancreatitis type: alcohol induced Acute pancreatitis complication: no infection or necrosis Qualified Codes: K85.20 - Alcohol induced acute pancreatitis without necrosis or infection (2) Nausea & vomiting Status: Acute Qualifiers: Vomiting type: unspecified Qualified Codes: R11.2 - Nausea with vomiting, unspecified (3) Alcohol dependence Status: Acute Qualifiers: Substance use status: other alcohol-induced disorder Qualified Codes: F10.288 - Alcohol dependence with other alcohol-induced disorder COOKIE HEATH MD October 28, 2021 10:51
[2021-10-28] MEDS: ENOXAPARIN 40 MG/0.4 ML (LOVENOX) SYR SQ SCH (11:33)
[2021-10-28] MEDS: morphine INJ 4 MG/ML 1 ML (VIAL/SYRINGE) IVP PRN ×5 (11:33→23:21)
[2021-10-28 11:59] VITALS: BP 155/96
[2021-10-28 15:48] VITALS: BP 152/78
[2021-10-28 20:00] VITALS: BP 142/79
[2021-10-28 23:47] VITALS: BP 162/93
[2021-10-29] MEDS: morphine INJ 4 MG/ML 1 ML (VIAL/SYRINGE) IVP PRN ×6 (02:54→20:49)
[2021-10-29 03:54] VITALS: BP 145/90
[2021-10-29] MEDS: D5 1/2 NS W/KCL 20 MEQ/L 1,000 ML IV SCH (05:24)
[2021-10-29 05:56] LABS: HEMATOCRIT 45 % (40-54); HEMOGLOBIN 16.1 g/dL (13.3-17.7); MEAN CORPUSCULAR HEMOGLOBIN 35 pg (25-34); MEAN CORPUSCULAR HGB CONC 36 g/dL (32-36); MEAN CORPUSCULAR VOLUME 97 fL (80-99); MEAN PLATELET VOLUME 9.8 fL (9.0-12.2); PLATELET COUNT 153 10^3/uL (130-400); WHITE BLOOD COUNT 15.3 10^3/uL (4.3-11.0)
[2021-10-29 06:06] LABS: POTASSIUM 3.9 MMOL/L (3.6-5.0)
[2021-10-29 06:07] LABS: CALCIUM 8.6 MG/DL (8.5-10.1)
[2021-10-29 06:12] LABS: CREATININE SERUM 0.67 MG/DL (0.60-1.30)
[2021-10-29 07:39] VITALS: BP 153/96
--- NOTE | 2021-10-29 08:24 | Diagnostic Imaging Report ---
Indication: Fever EXAMINATION: Chest 10/29/2021 Single view chest FINDINGS: The cardiomediastinal silhouette is unremarkable. The pulmonary vasculature is within normal limits. The lungs and pleural spaces are clear. IMPRESSION: No evidence of an acute cardiopulmonary process. Dictated by: Dictated on workstation # [id number]
[2021-10-29] MEDS: FAMOTIDINE 20MG/2ML IV (PEPCID) IVP SCH ×2 (08:51→19:36)
[2021-10-29] MEDS: THIAMINE INJECTION 100 MG, FOLIC ACID INJECTION 1 MG, VITAMIN MULTI INJECTION 10 ML, MA... IV SCH ×5 (09:46)
[2021-10-29] MEDS: LACTATED RINGERS 1,000 ML IV SCH ×4 (11:10→23:24)
[2021-10-29] MEDS: ENOXAPARIN 40 MG/0.4 ML (LOVENOX) SYR SQ SCH (11:10)
[2021-10-29 11:18] VITALS: BP 150/88
[2021-10-29 11:23] LABS: AMYLASE 418 U/L (25-125); LIPASE 953 U/L (8-78)
--- NOTE | 2021-10-29 11:49 | Consultation - Surgery ---
History of Present Illness History of Present Illness Patient Consulted On(gregorio/time) 10/29/21 11:43 Time Seen by Provider: 11:11 History of Present Illness Surgery asked to consult regarding Acute Pancreatitis. HPI per ED: This 46-year-old gentleman presents to the emergency room with 3 days of upper abdominal pain, nausea, and vomiting. He is accustomed to drinking about a pint of hard alcohol daily. He has not had any alcohol in the past 2 days. He does have history of pancreatitis. He denies any diarrhea, constipation, fever, or urinary changes. He has taken a couple of aspirin but no other medications to treat his symptoms. When I saw pt this morning he stated the pain was at least an 8 out of 10. Sharp stabbing pain in the middle of his abdomen going straight through to his back. He has had this before, he has hx of pancreatitis and first episode was about 6 years ago. Nothing really helps the pain and the meds only take the edge off. Allergies and Home Medications Allergies Coded Allergies: No Known Drug Allergies (Unverified , 02/08/21) Patient Home Medication List Home Medication List Reviewed: Yes No Active Prescriptions or Reported Meds Past Nnmccow-Jphlfj-Ujitul Hx Patient Social History Smoking Status: Current Everyday Smoker (1ppd "since I was 15") Alcohol Use?: Yes Substance type: Marijuana Have you traveled recently?: No Surgeries History of Surgeries: No Respiratory History of Respiratory Disorde: No Cardiovascular History of Cardiac Disorders: No Neurological History of Neurological Disord: No Reproductive System Hx Reproductive Disorders: No Genitourinary History of Genitourinary Disor: No Gastrointestinal History of Gastrointestinal Di: Yes Gastrointestinal Disorders: Pancreatitis Musculoskeletal History of Musculoskeletal Dis: No Endocrine History of Endocrine Disorders: No HEENT History of HEENT Disorders: No Loss of Vision: Denies Hearing Impairment: Denies Cancer History of Cancer: No Psychosocial History of Psychiatric Problem: Yes (Alcohol dependence) Integumentary History of Skin or Integumenta: No Family Medical History Significant Family History: Other Conditions/Hx (Pt denied his parents had any DM or HTN) Review of Systems-General Constitutional: No fever; malaise EENTM: No blurred vision, No double vision, No mouth swelling, No epistaxis Respiratory: No cough, No dyspnea on exertion, No hemoptysis Cardiovascular: No chest pain, No edema, No palpitations Gastrointestinal: abdominal pain; No hematemesis, No jaundice; loss of appetite, nausea, vomiting Genitourinary: No dysuria, No frequency, No hematuria Musculoskeletal: back pain; No muscle cramps Skin: No change in color, No change in hair/nails Psychiatric/Neurological: Denies Anxiety, Denies Seizure, Denies Tremors Physical Exam-General Problems Physical Exam Vital Signs Vital Signs - First Documented 10/28/21 10/28/21 04:18 06:49 Temp 36.8 Pulse 67 Resp 16 B/P (MAP) 161/90 (113) Pulse Ox 100 O2 Delivery Room Air Capillary Refill : General Appearance: WD/WN, mild distress Eyes: Bilateral Eye PERRL, Bilateral Eye EOMI HEENT: pharynx normal; No scleral icterus (R), No scleral icterus (L) Neck: non-tender, supple Respiratory: chest non-tender, lungs clear, normal breath sounds, no resp iratory distress, no accessory muscle use Cardiovascular: regular rate, rhythm, no murmur Gastrointestinal: soft, no organomegaly, guarding (voluntary), tenderness (diffusely, but most is epigastric and subxyphoid), hernia (small umbilical) Back: no CVA tenderness, no vertebral tenderness Extremities: no pedal edema, no calf tenderness, normal capillary refill Neurologic/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 nml as tested, no motor/sensory deficits, alert, normal mood/affect, oriented x 3 Skin: normal color, warm/dry Lymphatic: no adenopathy (neck, axilla or groin) Data Review Labs Laboratory Tests 10/29/21 05:22: White Blood Count 15.3H, Red Blood Count 4.62, Hemoglobin 16.1, Hematocrit 45, Mean Corpuscular Volume 97, Mean Corpuscular Hemoglobin 35H, Mean Corpuscular Hemoglobin Concent 36, Red Cell Distribution Width 12.4, Platelet Count 153, Mean Platelet Volume 9.8, Sodium Level 133L, Potassium Level 3.9, Chloride Level 100, Carbon Dioxide Level 22, Anion Gap 11, Blood Urea Nitrogen 5L, Creatinine 0.67, Estimat Glomerular Filtration Rate 120, BUN/Creatinine Ratio 7, Glucose Level 106H, Calcium Level 8.6, Amylase Level 418H, Lipase 953H 10/29/21 08:00: Lactic Acid Level 0.90 Radiology Date of Exam:10/28/21 CT ABDOMEN/PELVIS W EXAMINATION: CT abdomen and pelvis with intravenous contrast. TECHNIQUE: Multiple contiguous axial images were obtained through the abdomen and pelvis after the uneventful administration of intravenous contrast. All CT scans use one or more of the following dose optimizing techniques: automated exposure control, MA and/or KvP adjustment based on patient size and exam type or iterative reconstruction. HISTORY: Abdominal pain. Pancreatitis. COMPARISON: None available. FINDINGS: The heart is unremarkable. Dependent atelectasis is seen in the lung bases. There is edema and inflammation surrounding the entirety of the pancreas. No focal pancreatic lesions are identified. No loculated collections are seen to suggest pseudocyst formation. The splenic vein is patent. No evidence of pseudoaneurysm of the splenic artery. There is normal enhancement throughout the pancreas. No pancreatic ductal dilation is seen. Small amount of calcifications are seen within the pancreatic head. A small volume of ascites is seen in the upper abdomen. There is hepatic steatosis. No focal hepatic lesions. The portal vein is patent. The gallbladder is unremarkable. The spleen, adrenal glands, and kidneys have a normal appearance. There is no pathologically enlarged mesenteric or retroperitoneal adenopathy. The bowel loops are nondilated. The appendix is visualized in the right lower quadrant and has a normal appearance. Scattered diverticula are seen in the sigmoid and descending colon without evidence of acute diverticulitis. No evidence of free air. No acute osseous abnormalities. Ureters and bladder are grossly normal. There is no free air, loculated collection, or adenopathy in the pelvis. IMPRESSION: 1. Acute edematous interstitial pancreatitis. No focal pancreatic lesions. Recommend continued follow-up as indicated. 2. Calcifications within the head of the pancreas, suggestive of sequelae of chronic pancreatitis. 3. Small volume of ascites in the upper abdomen. 4. Hepatic steatosis. 5. Scattered diverticula without evidence of acute diverticulitis. Dictated by: Dictated on workstation # [id number] Dict: 10/28/21606 Trans: 10/28/21624 UMBERTO [id number] Interpreted by: KATHRIN CROOK DO Electronically signed by: KATHRIN CROOK DO 10/28/21 0625 Assessment/Plan Assessment/Plan Assessment/Plan Acute Pancreatitis secondary to EtOH abuse Plan is npo, IV fluids (at 250ml/hr for at least 8 hours), pain control, monitor labs. I reviewed the CT myself, he has a lot of inflammation around the head and tail of pancreas; as well as, some free fluid surrounding it and maybe in the retroperitoneum. His day one [place] Criteria is very low. However, his WBC did shoot up and he had a fever. Will watch him to make sure he doesn't develop a necrotizing pancreatitis. Thank you for this consult, will follow along. DARWIN LIZAMA DO October 29, 2021 11:49
--- NOTE | 2021-10-29 12:26 | Progress Note - Hospitalist ---
Subjective HPI/CC On Admission Date Seen by Provider: October 29, 2021 Time Seen by Provider: 12:23 Patient is a 41-year-old male with past medical history of alcohol abuse, pancreatitis, tobacco abuse who presented to the emergency department due to abdominal pain. He states that this started roughly 3 days ago and feels sim ilar to the last time he had pancreatitis. Last episode of this was roughly 8 years ago. He has continued to drink and drinks about a pint of alcohol per day. His last drink was 2 days ago. He does have a history of alcohol withdrawal including seizures and tremors. He does have some nausea as well right now. Subjective/Events-last exam Pt reports doing better today but still having significant pain. No desire to start diet yet. Did develop a fever overnight with increasing white count. Discussed plan for surgery consult. Focused Exam Lactate Level 10/29/21 08:00: Lactic Acid Level 0.90 Objective Exam Vital Signs Vital Signs Date Time Temp Pulse Resp B/P (MAP) Pulse Ox O2 Delivery O2 Flow Rate FiO2 10/29/21 11:18 36.6 96 18 150/88 (108) 99 Room Air Capillary Refill : General Appearance: No Apparent Distress, WD/WN Respiratory: Lungs Clear, No Respiratory Distress Cardiovascular: Regular Rate, Rhythm, No Murmur Gastrointestinal: Normal Bowel Sounds; No Distended; Tenderness (mild, diffuse) Neurologic/Psychiatric: Alert, Oriented x3 Results/Procedures Lab Laboratory Tests 10/29/21 05:22 Patient resulted labs reviewed. 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 Tobacco abuse Recommended cessation Nicotine patch prn DVT ppx: Lovenox Diagnosis/Problems Diagnosis/Problems (1) Acute pancreatitis Status: Acute Qualifiers: Pancreatitis type: alcohol induced Acute pancreatitis complication: no infection or necrosis Qualified Codes: K85.20 - Alcohol induced acute pancreatitis without necrosis or infection (2) Nausea & vomiting Status: Acute Qualifiers: Vomiting type: unspecified Qualified Codes: R11.2 - Nausea with vomiting, unspecified (3) Alcohol dependence Status: Acute Qualifiers: Substance use status: other alcohol-induced disorder Qualified Codes: F10. 288 - Alcohol dependence with other alcohol-induced disorder COOKIE HEATH MD October 29, 2021 12:26
[2021-10-29 16:00] VITALS: BP 132/73
[2021-10-29 20:00] VITALS: BP 151/77
[2021-10-29 23:32] VITALS: BP 148/92
[2021-10-30] MEDS: morphine INJ 4 MG/ML 1 ML (VIAL/SYRINGE) IVP PRN ×3 (00:19→07:53)
[2021-10-30] MEDS: LACTATED RINGERS 1,000 ML IV SCH ×5 (00:52→22:31)
[2021-10-30 03:50] VITALS: BP 146/88
[2021-10-30] MEDS: FAMOTIDINE 20MG/2ML IV (PEPCID) IVP SCH ×2 (07:46→19:59)
[2021-10-30 07:54] VITALS: BP 135/84
[2021-10-30] MEDS: THIAMINE INJECTION 100 MG, FOLIC ACID INJECTION 1 MG, VITAMIN MULTI INJECTION 10 ML, MA... IV SCH ×5 (09:12)
[2021-10-30 10:34] LABS: BASOPHILS % (AUTO) 0 % (0-10); EOSINOPHILS # (AUTO) 0.1 10^3/uL (0.0-0.3); EOSINOPHILS % (AUTO) 1 % (0-10); HEMATOCRIT 43 % (40-54); LYMPHOCYTES # (AUTO) 1.1 10^3/uL (1.0-4.0); LYMPHOCYTES % (AUTO) 9 % (12-44); MEAN CORPUSCULAR HEMOGLOBIN 34 pg (25-34); MEAN CORPUSCULAR HGB CONC 35 g/dL (32-36); MEAN CORPUSCULAR VOLUME 98 fL (80-99); MEAN PLATELET VOLUME 9.7 fL (9.0-12.2); MONOCYTES # (AUTO) 1.1 10^3/uL (0.0-1.0); MONOCYTES % (AUTO) 9 % (0-12); NEUTROPHILS # (AUTO) 9.6 10^3/uL (1.8-7.8); NEUTROPHILS % (AUTO) 80 % (42-75); PLATELET COUNT 172 10^3/uL (130-400)
[2021-10-30 10:47] LABS: ALBUMIN 3.4 GM/DL (3.2-4.5); BILIRUBIN,TOTAL 1.4 MG/DL (0.1-1.0); CALCIUM 8.9 MG/DL (8.5-10.1); CREATININE SERUM 0.68 MG/DL (0.60-1.30); POTASSIUM 4.1 MMOL/L (3.6-5.0); TOTAL PROTEIN 6.3 GM/DL (6.4-8.2)
[2021-10-30] MEDS: ENOXAPARIN 40 MG/0.4 ML (LOVENOX) SYR SQ SCH (11:07)
[2021-10-30 11:22] VITALS: BP 137/75
--- NOTE | 2021-10-30 11:41 | Progress Note - Hospitalist ---
Subjective HPI/CC On Admission Date Seen by Provider: October 30, 2021 Time Seen by Provider: 11:39 Patient is a 41-year-old male with past medical history of alcohol abuse, pancreatitis, tobacco abuse who presented to the emergency department due to abdominal pain. He states that this started roughly 3 days ago and feels sim ilar to the last time he had pancreatitis. Last episode of this was roughly 8 years ago. He has continued to drink and drinks about a pint of alcohol per day. His last drink was 2 days ago. He does have a history of alcohol withdrawal including seizures and tremors. He does have some nausea as well right now. Subjective/Events-last exam Pt reports feeling better today. Would like to try to advance his diet as pain is improving so much. Focused Exam Lactate Level 10/29/21 08:00: Lactic Acid Level 0.90 Objective Exam Vital Signs Vital Signs Date Time Temp Pulse Resp B/P (MAP) Pulse Ox O2 Delivery O2 Flow Rate FiO2 10/30/21 11:22 36.7 84 18 137/75 (95) 99 Room Air Capillary Refill : General Appearance: No Apparent Distress, WD/WN Respiratory: Lungs Clear, No Respiratory Distress Cardiovascular: Regular Rate, Rhythm, No Murmur Gastrointestinal: Normal Bowel Sounds, Non Tender, Soft Neurologic/Psychiatric: Alert, Oriented x3 Results/Procedures Lab Laboratory Tests 10/30/21 10:25 Patient resulted labs reviewed. 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 Tobacco abuse Recommended cessation Nicotine patch prn DVT ppx: Lovenox Diagnosis/Problems Diagnosis/Problems (1) Acute pancreatitis Status: Acute Qualifiers: Pancreatitis type: alcohol induced Acute pancreatitis complication: no infection or necrosis Qualified Codes: K85.20 - Alcohol induced acute pancreatitis without necrosis or infection (2) Nausea & vomiting Status: Acute Qualifiers: Vomiting type: unspecified Qualified Codes: R11.2 - Nausea with vomiting, unspecified (3) Alcohol dependence Status: Acute Qualifiers: Substance use status: other alcohol-induced disorder Qualified Codes: F10.288 - Alcohol dependence with other alcohol-induced disorder COOKIE HEATH MD October 30, 2021 11:41
[2021-10-30] MEDS: HYDROcodone/APAP 5 MG/325 MG (LORTAB) TAB PO PRN ×2 (12:34→22:52)
--- NOTE | 2021-10-30 13:07 | Progress Note - Surgery ---
Subjective Time Seen by a Provider: 12:41 Subjective/Events-last exam Pt seen and examined, sitting up in bed in NAD. Pt states pain is much better; "almost gone". He states he drank an entire sprite and didn't cause any pain. Review of Systems Pulmonary: No Dyspnea, No Cough Cardiovascular: No: Chest Pain, Palpitations Gastrointestinal: Abdominal Pain (minimal); No: Nausea, Vomiting Focused Exam Lactate Level 10/29/21 08:00: Lactic Acid Level 0.90 Objective Exam Vital Signs Date Time Temp Pulse Resp B/P (MAP) Pulse Ox O2 Delivery O2 Flow Rate FiO2 10/30/21 12:46 89 10/30/21 11:22 36.7 84 18 137/75 (95) 99 Room Air 10/30/21 08:00 99 Room Air 10/30/21 07:54 37.2 90 18 135/84 (101) 99 Room Air 10/30/21 07:00 96 10/30/21 03:50 36.8 80 18 146/88 (107) 97 Room Air 10/30/21 00:47 88 10/29/21 23:32 37.6 85 18 148/92 (110) 97 Room Air 10/29/21 20:00 36.6 90 18 151/77 (101) 98 Room Air 10/29/21 19:35 Room Air 10/29/21 19:00 91 10/29/21 16:00 35.6 94 20 132/73 (92) 98 Room Air 10/29/21 13:46 94 I & O 10/30/21 07:00 Intake Total 3000 ml Balance 3000 ml Capillary Refill : General Appearance: No Apparent Distress, WD/WN HEENT: PERRL/EOMI, Moist Mucous Membranes; No Scleral Icterus (L), No Scleral Icterus (R) Respiratory: Lungs Clear, Normal Breath Sounds, No Accessory Muscle Use, No Respiratory Distress Cardiovascular: Regular Rate, Rhythm, No Murmur Gastrointestinal: normal bowel sounds, soft, tenderness (Throughout the upper abdomen) Neurologic/Psychiatric: Alert, Oriented x3 Skin: Normal Color, Warm/Dry Results Lab Laboratory Tests 10/30/21 10:25: White Blood Count 12.0H, Red Blood Count 4.36, Hemoglobin 15.0, Hematocrit 43, Mean Corpuscular Volume 98, Mean Corpuscular Hemoglobin 34, Mean Corpuscular Hemoglobin Concent 35, Red Cell Distribution Width 12.2, Platelet Count 172, Mean Platelet Volume 9.7, Immature Granulocyte % (Auto) 0, Neutrophils (%) (Auto) 80H, Lymphocytes (%) (Auto) 9L, Monocytes (%) (Auto) 9, Eosinophils (%) (Auto) 1, Basophils (%) (Auto) 0, Neutrophils # (Auto) 9.6H, Lymphocytes # (Auto) 1.1, Monocytes # (Auto) 1.1H, Eosinophils # (Auto) 0.1, Basophils # (Auto) 0.0, Immature Granulocyte # (Auto) 0.0, Sodium Level 133L, Potassium Level 4.1, Chloride Level 100, Carbon Dioxide Level 21, Anion Gap 12, Blood Urea Nitrogen 6L, Creatinine 0.68, Estimat Glomerular Filtration Rate 119, BUN/Creatinine Ratio 9, Glucose Level 95, Calcium Level 8.9, Corrected Calcium 9.4, Total Bilirubin 1.4H, Aspartate Amino Transf (AST/SGOT) 23, Alanine Aminotransferase (ALT/SGPT) 40, Alkaline Phosphatase 54, Total Protein 6.3L, Albumin 3.4, Amylase Level 98, Lipase 137H Microbiology 10/29/21 Gram Stain - Final, Resulted 10/29/21 Sputum Culture - Preliminary, Resulted Usual upper respiratory brett Assessment/Plan Assessment/Plan Assessment/Plan Acute Pancreatitis secondary to EtOH abuse Plan is advance diet slowly and decrease. Continue pain control as needed with oral meds. His WBC has gone down, Lipase is normal and Amylase is only mildly elevated. Would watch, but looks like he is improving nicely and may be able to go home tomorrow depending on how he tolerates diet. DARWIN LIZAMA DO October 30, 2021 13:07
[2021-10-30 16:05] VITALS: BP 138/84
[2021-10-30 20:00] VITALS: BP 140/85
[2021-10-31 00:04] VITALS: BP 124/69
[2021-10-31] MEDS: LACTATED RINGERS 1,000 ML IV SCH ×3 (00:05→08:30)
[2021-10-31 04:10] VITALS: BP 141/89
[2021-10-31 07:41] VITALS: BP 137/86
--- NOTE | 2021-10-31 08:55 | Discharge Summary ---
Diagnosis/Chief Complaint Date of Admission October 28, 2021 at 06:05 Date of Discharge Admission Diagnosis Acute pancreatitis Primary Care No,Local Physician Discharge Diagnosis (1) Acute pancreatitis Status: Acute (2) Nausea & vomiting Status: Acute (3) Alcohol dependence Status: Acute Discharge Summary Discharge Physical Exam Allergies: Coded Allergies: No Known Drug Allergies (Unverified , 02/08/21) Vitals & I&Os Vital Signs Date Time Temp Pulse Resp B/P (MAP) Pulse Ox O2 Delivery O2 Flow Rate FiO2 10/31/21 08:00 98 Room Air 10/31/21 07:41 36.5 73 18 137/86 (103) General Appearance: No Apparent Distress, WD/WN Cardiovascular: Regular Rate, Rhythm, No Murmur Gastrointestinal: Normal Bowel Sounds, Non Tender, Soft Neurologic/Psychiatric: Alert, Oriented x3 Hospital Course Patient was admitted to the hospital due to acute pancreatitis secondary to al cohol use. He was treated with IV fluids, pain medications, and bowel rest. His symptoms improved. He did develop a fever and leukocytosis so surgery was consulted though no intervention was warranted and these both improved. He was able to be discharged home in stable and improved condition to follow-up with [facility] to follow-up this hospital stay. Labs (last 24 hrs) Laboratory Tests 10/30/21 10:25: White Blood Count 12.0H, Red Blood Count 4.36, Hemoglobin 15.0, Hematocrit 43, Mean Corpuscular Volume 98, Mean Corpuscular Hemoglobin 34, Mean Corpuscular Hemoglobin Concent 35, Red Cell Distribution Width 12.2, Platelet Count 172, Mean Platelet Volume 9.7, Immature Granulocyte % (Auto) 0, Neutrophils (%) (Auto ) 80H, Lymphocytes (%) (Auto) 9L, Monocytes (%) (Auto) 9, Eosinophils (%) (Auto) 1, Basophils (%) (Auto) 0, Neutrophils # (Auto) 9.6H, Lymphocytes # (Auto) 1.1, Monocytes # (Auto) 1.1H, Eosinophils # (Auto) 0.1, Basophils # (Auto) 0.0, Immature Granulocyte # (Auto) 0.0, Sodium Level 133L, Potassium Level 4.1, Chloride Level 100, Carbon Dioxide Level 21, Anion Gap 12, Blood Urea Nitrogen 6L, Creatinine 0.68, Estimat Glomerular Filtration Rate 119, BUN/Creatinine Ratio 9, Glucose Level 95, Calcium Level 8.9, Corrected Calcium 9.4, Total Bilirubin 1.4H, Aspartate Amino Transf (AST/SGOT) 23, Alanine Aminotransferase (ALT/SGPT) 40, Alkaline Phosphatase 54, Total Protein 6.3L, Albumin 3.4, Amylase Level 98, Lipase 137H Microbiology 10/29/21 Blood Culture - Preliminary, Resulted No growth 10/29/21 Gram Stain - Final, Resulted 10/29/21 Sputum Culture - Preliminary, Resulted Usual upper respiratory brett Patient resulted labs reviewed. Imaging: Reviewed Imaging Report Discussion & Recommendations Discharge Planning: >30 minutes discharge planning Discharge Home Medications: Active Scripts Active No Active Prescriptions or Reported Medications Instructions to patient/family Please see electronic discharge instructions given to patient. Problem Qualifiers (1) Acute pancreatitis: Pancreatitis type: alcohol induced Acute pancreatitis complication: no infection or necrosis Qualified Codes: K85.20 - Alcohol induced acute pancreatitis without necrosis or infection (2) Nausea & vomiting: Vomiting type: unspecified Qualified Codes: R11.2 - Nausea with vomiting, unspecified (3) Alcohol dependence: Substance use status: other alcohol-induced disorder Qualified Codes: F10.288 - Alcohol dependence with other alcohol-induced disorder COOKIE HEATH MD October 31, 2021 08:55
--- NOTE | 2021-10-31 08:56 | Discharge Inst-Simple/Standard ---
Discharge Inst-Standard Patient Instructions/Follow Up Plan of Care/Instructions/FU: Please follow up with [facility] to follow up this hospital stay. Please work on quitting alcohol to help prevent further episodes of pancreatitis and other impacts to your health. Activity as Tolerated: Yes Discharge Diet: Soft Diet (bland, advance slowing over the next few days) Return to The Hospital For: Abdominal pain, fever, weakness, chest pain, shortness of breath, if you feel you are getting worse. COOKIE HEATH MD October 31, 2021 08:56
[2021-10-31 09:30] VITALS: BP 137/86
[2021-10-31] MEDS: FAMOTIDINE 20MG/2ML IV (PEPCID) IVP SCH (09:44)
== END 2021-10-31 09:30 | disposition home or self-care (01) | DRG 439 ==
LOC: EDUNIT# 03:30 → ER 03:32 → 4TH 06:05
PROVIDERS: ADMIT Internal Medicine; ATTEND Internal Medicine
DX: K85.20 Alcohol induced acute pancreatitis without necrosis or infection (principal); F10.288 Alcohol dependence with other alcohol-induced disorder; F17.210 Nicotine dependence, cigarettes, uncomplicated; F12.90 Cannabis use, unspecified, uncomplicated; R11.2 Nausea with vomiting, unspecified; R50.9 Fever, unspecified; D72.829 Elevated white blood cell count, unspecified
CPT/HCPCS: 36415; 71045; 74177; 80048; 80053; 80320; 81000; 82150; 83605; 83690; 83735; 85025; 85027; 85610; 86141; 87040; 87070; 87205; 93005

== ENCOUNTER 2022-07-01 16:53 | Inpatient (IN) | payer SELFPAY ==
[~2022-07-01] VITALS: Ht 195.6 cm; Wt 87.3 kg
[2022-07-01] MEDS ORDERED: fentaNYL INJ 100 MCG/2 ML AMP IVP STA (17:14)
--- NOTE | 2022-07-01 17:20 | ED Abdominal Pain ---
General Chief Complaint: Abdominal/GI Problems Stated Complaint: ABD PAIN Nursing Triage Note: PT AMB TO [facility] 6 WITH COMPLAINT OF RLQ PAIN THAT RADIATES UP. STATES STARTED ABOUT A WEEK AGO, AND WORSENED THE LAST TWO DAYS. (KALPANA KEYS DO) History of Present Illness Date Seen by Provider: Jul 01, 2022 Time Seen by Provider: 17:16 Initial Comments 41-year-old male presents with right-sided abdominal pain. Patient reports he started encountering the mid right upper quadrant about a week ago. He reports over the last 2 days is significant worsening. He has significant amount of pain on the right side especially down the right lower quadrant. Patient denies any fever, chills, nausea or vomiting. Patient also has some pain in the flank. He denies any hematuria. Patient does have a history of pancreatitis. (KALPANA KEYS DO) Allergies and Home Medications Allergies Coded Allergies: No Known Drug Allergies (Unverified , 02/08/21) Patient Home Medication List Home Medication List Reviewed: Yes (KALPANA KEYS DO) No Active Prescriptions or Reported Meds Review of Systems Review of Systems Constitutional: No chills, No fever Respiratory: Denies Cough, Denies Shortness of Air Cardiovascular: Denies Chest Pain, Denies Palpitations Gastrointestinal: Abdominal Pain; Denies Diarrhea, Denies Nausea, Denies Vomiting Genitourinary: No Symptoms Reported Musculoskeletal: no symptoms reported Skin: no symptoms reported Psychiatric/Neurological: No Symptoms Reported (KALPANA KEYS DO) Past Dhsxmxl-Cvzizo-Wdxahi Hx Patient Social History Tobacco Use?: Yes Tobacco type used: Cigarettes Smoking Status: Current Everyday Smoker Use of E-Cig and/or Vaping dev: No Substance use?: Yes Substance type: Marijuana Alcohol Use?: Yes Alcohol Frequency: Daily Pt feels they are or have been: No (KALPANA KEYS DO) Tobacco Use?: Yes Tobacco type used: Cigarettes Smoking Status: Current Everyday Smoker Substance use?: Yes Substance type: Marijuana Substance frequency: Daily Alcohol Use?: Yes Alcohol type: Hard Liquor Alcohol Frequency: Daily (MARIA FERNANDA CLAY DO) Past Medical History Surgeries: No Respiratory: No Cardiac: No Neurological: No Reproductive Disorders: No Genitourinary: No Gastrointestinal: Yes Pancreatitis Musculoskeletal: No Endocrine: No HEENT: No Loss of Vision: Denies Hearing Impairment: Denies Cancer: No Psychosocial: Yes (Alcohol dependence) Integumentary: No (KALPANA KEYS DO) Surgeries: No Respiratory: No Cardiac: No Neurological: No Genitourinary: No Gastrointestinal: Yes Pancreatitis Musculoskeletal: No Endocrine: No HEENT: No Cancer: No Psychosocial: Yes (ALCOHOLISM AND MARIJUANA USE. ) Integumentary: No (TATTOOS) Blood Disorders: No (MARIA FERNANDA CLAY DO) Family Medical History Other Conditions/Hx (KALPANA KEYS DO) Physical Exam Vital Signs Vital Signs - First Documented 07/01/22 17:02 Temp 36.6 Pulse 107 Resp 20 B/P (MAP) 134/95 (108) Pulse Ox 99 O2 Delivery Room Air (MARIA FERNANDA CLAY DO) Vital Signs Capillary Refill : Less Than 3 Seconds (KALPANA KEYS DO) Height/Weight/BMI Height: '" Weight: lbs. oz. kg; 25.00 BMI Method: General Appearance: mild distress HEENT: PERRL/EOMI Neck: full range of motion, supple Respiratory: lungs clear, normal breath sounds, no respiratory distress Cardiovascular: normal peripheral pulses, regular rate, rhythm Gastrointestinal: guarding, rebound, tenderness (Right sided right lower quadrant greater than right upper quadrant) Extremities: normal range of motion, non-tender Back: CVA tenderness (R) Neurologic/Psychiatric: alert, normal mood/affect, oriented x 3 Skin: normal color, warm/dry, tattoos/piercings (KALPANA KEYS DO) Focused Exam Sepsis Stage: Sepsis Reason for ruling out sepsis: POSSIBLE Possible Source: GI Tract/Intra-Abdominal Lactate Level 07/01/22 17:25: Lactic Acid Level 0.65 (MARIA FENRANDA CLAY DO) Time of Focused Exam: 18:45 Respiratory: Normal Breath Sounds, No Accessory Muscle Use, No Respiratory Distress Cardiovascular: No Edema, No Murmur, Tachycardia (HR AROUND 100) Capillary Refill: Less Than 3 Seconds Skin: normal color, warm/dry; No rash on exposed areas Lactic Acid Level Laboratory Tests Test 07/01/22 17:25 Lactic Acid Level 0.65 MMOL/L (0.50-2.00) (MARIA FERNANDA CLAY DO) Within 3hrs of presentation: Admin fluids, Blood cultures prior to ABX's, Focus exam, Lactate level (MARIA FERNANDA CLAY DO) Progress/Results/Core Measures Results/Orders Lab Results Laboratory Tests Test 07/01/22 17:25 07/01/22 18:08 Range/Units White Blood Count 11.4 H 4.3-11.0 10^3/uL Red Blood Count 3.92 L 4.30-5.52 10^6/uL Hemoglobin 13.1 L 13.3-17.7 g/dL Hematocrit 38 L 40-54 % Mean Corpuscular Volume 96 80-99 fL Mean Corpuscular Hemoglobin 33 25-34 pg Mean Corpuscular Hemoglobin Concent 35 32-36 g/dL Red Cell Distribution Width 12.5 10.0-14.5 % Platelet Count 683 H 130-400 10^3/uL Mean Platelet Volume 8.5 L 9.0-12.2 fL Immature Granulocyte % (Auto) 1 % Neutrophils (%) (Auto) 67 42-75 % Lymphocytes (%) (Auto) 18 12-44 % Monocytes (%) (Auto) 10 0-12 % Eosinophils (%) (Auto) 4 0-10 % Basophils (%) (Auto) 1 0-10 % Neutrophils # (Auto) 7.7 1.8-7.8 10^3/uL Lymphocytes # (Auto) 2.0 1.0-4.0 10^3/uL Monocytes # (Auto) 1.1 H 0.0-1.0 10^3/uL Eosinophils # (Auto) 0.5 H 0.0-0.3 10^3/uL Basophils # (Auto) 0.1 0.0-0.1 10^3/uL Immature Granulocyte # (Auto) 0.1 0.0-0.1 10^3/uL Prothrombin Time 13.8 12.2-14.7 SEC INR Comment 1.0 0.8-1.4 Activated Partial Thromboplast Time 31 24-35 SEC Sodium Level 137 135-145 MMOL/L Potassium Level 4.0 3.6-5.0 MMOL/L Chloride Level 104 98-107 MMOL/L Carbon Dioxide Level 24 21-32 MMOL/L Anion Gap 9 5-14 MMOL/L Blood Urea Nitrogen 11 7-18 MG/DL Creatinine 0.63 0.60-1.30 MG/DL Estimat Glomerular Filtration Rate 122 BUN/Creatinine Ratio 17 Glucose Level 123 H 70-105 MG/DL Lactic Acid Level 0.65 0.50-2.00 MMOL/L Calcium Level 8.7 8.5-10.1 MG/DL Corrected Calcium 9.5 8.5-10.1 MG/DL Total Bilirubin 0.3 0.1-1.0 MG/DL Aspartate Amino Transf (AST/SGOT) 15 5-34 U/L Alanine Aminotransferase (ALT/SGPT) 12 0-55 U/L Alkaline Phosphatase 56 40-136 U/L C-Reactive Protein High Sensitivity 7.38 H 0.00-0.50 MG/DL Total Protein 6.7 6.4-8.2 GM/DL Albumin 3.0 L 3.2-4.5 GM/DL Amylase Level 420 H 25-125 U/L Lipase 405 H 8-78 U/L Procalcitonin 0.09 <0.10 NG/ML Serum Alcohol < 10 <10 MG/DL Urine Color ORANGE Urine Clarity CLEAR Urine pH 7.5 5-9 Urine Specific [place] 1.020 1.016-1.022 Urine Protein TRACE H NEGATIVE Urine Glucose (UA) NEGATIVE NEGATIVE Urine Ketones TRACE H NEGATIVE Urine Nitrite NEGATIVE NEGATIVE Urine Bilirubin NEGATIVE NEGATIVE Urine Urobilinogen 1.0 < = 1.0 MG/DL Urine Leukocyte Esterase NEGATIVE NEGATIVE Urine RBC (Auto) NEGATIVE NEGATIVE Urine RBC 0-2 /HPF Urine WBC 0-2 /HPF Urine Squamous Epithelial Cells 0-2 /HPF Urine Crystals NONE /LPF Urine Bacteria TRACE /HPF Urine Casts PRESENT /LPF Urine Hyaline Casts RARE /LPF Urine Mucus MODERATE H /LPF Urine Culture Indicated NO Urine Opiates Screen NEGATIVE NEGATIVE Urine Oxycodone Screen NEGATIVE NEGATIVE Urine Methadone Screen NEGATIVE NEGATIVE Urine Propoxyphene Screen NEGATIVE NEGATIVE Urine Barbiturates Screen NEGATIVE NEGATIVE Ur Tricyclic Antidepressants Screen NEGATIVE NEGATIVE Urine Phencyclidine Screen NEGATIVE NEGATIVE Urine Amphetamines Screen NEGATIVE NEGATIVE Urine Methamphetamines Screen NEGATIVE NEGATIVE Urine Benzodiazepines Screen NEGATIVE NEGATIVE Urine Cocaine Screen NEGATIVE NEGATIVE Urine Cannabinoids Screen POSITIVE H NEGATIVE (MARIA FERNANDA CLAY DO) My Orders Orders - MARIA FERNANDA CLAY DO Ed Iv/Invasive Line Start (07/01/22 17:53) Lactated Ringers (Lr 1000 Ml Iv Solution (07/01/22 18:00) Ketorolac Injection (Toradol Injection) (07/01/22 18:00) Alcohol (07/01/22 18:01) Amylase (07/01/22 18:01) Drug Screen Stat (Urine) (07/01/22 18:01) Procalcitonin (Pct) (07/01/22 18:01) Acute Abd Series (07/01/22 18:02) Ct Abd/Pelvis Wo(Kidney Stone) (07/01/22 18:02) Blood Culture (07/01/22 18:47) Protime With Inr (07/01/22 18:47) Partial Thromboplastin Time (07/01/22 18:47) Ed Iv/Invasive Line Start (07/01/22 18:47) Vital Signs Adult Sepsis Patie Q15M (07/01/22 18:47) Remove Rings In Anticipation O (07/01/22 18:47) Ed Iv/Invasive Line Start (07/01/22 18:47) Lactated Ringers (Lr 1000 Ml Iv Solution (07/01/22 19:00) (OBED,MARIA FERNANDA K DO) Medications Given in ED Current Medications Medications Dose Ordered Sig/Espinoza Route Start Time Stop Time Status Last Admin Dose Admin Ketorolac Tromethamine 30 mg ONCE ONCE IVP 07/01/22 18:00 07/01/22 18:01 DC 07/01/22 18:08 30 MG Lactated Ringer's 1,000 ml @ 0 mls/hr Q0M ONCE IV 07/01/22 18:00 07/01/22 18:01 DC 07/01/22 18:08 0 MLS/HR (OBED,MARIA FERNANDA K DO) Vital Signs/I&O 07/01/22 17:02 Temp 36.6 Pulse 107 Resp 20 B/P (MAP) 134/95 (108) Pulse Ox 99 O2 Delivery Room Air (OBED,MARIA FERNANDA K DO) Blood Pressure Mean: 108 Progress Progress Note : Progress Note 1800--ASSUMED CARE OF PT AT SHIFT CHANGE. LAB IS PENDING. VITALS ARE STABLE AT THIS TIME. EXAM FINDINGS ARE THE SAME WITH DR. KEYS'S EXAM. PT STILL WITH REBOUND AND GUARDING AND ABDOMEN IS RIGID. PT DOES NOT WANT TO MOVE, DUE TO SEVERE PAIN IN ABDOMEN. PT STATES MILD RELIEF WITH FENTANYL. WILL ADD IV FLUIDS AND TORADOL FOR PAIN . PT STILL HAS NOT ATTEMPTED TO VOID AT THIS TIME. 1845--NO RELIEF WITH TORADOL, PT HAS BEEN ABLE TO VOID AND URINE DOES NOT SHOW ANY BLOOD OR WBC'S OR BILIRUBIN. PT STATES THAT HE HAS NOT CHECKED TEMP, BUT HAS HAD NIGHT SWEATS THE LAST 2 NIGHTS. PT STATES HIS LAST ALCOHOL INTAKE WAS 3 WEEKS AGO. SEPSIS LAB ORDERED AND FOCUS EXAM DONE, HR AND WBC ARE BORDERLINE FOR SEPSIS, WITH SUSPECTED INTRA-ABDOMINAL INFECTION. WILL DEFER TO DR. LIZAMA FOR ANTIBIOTIC CHOICE. EXAM IS UNCHANGED AT THIS TIME CURRENT VITALS --TEMP 97.9, HR 104, RR 20, BP 121/74, O2 SAT 96% REVIEWED PRIOR RECORDS WHEN HE WAS ADMITTED IN OCTOBER, INCLUDING ER NOTES, H&P, CONSULTS, LAB AND CT FINDINGS, AND DISCHARGE SUMMARY. COVID TEST ORDERED PT IS NOT VACCINATED AND IS BEING ADMITTED, AND STATES HE HAS BEEN AROUND SOME PEOPLE WHO HAVE BEEN SICK, BUT NOT EXACTLY SURE WHEN HE WAS EXPOSED. COVID TEST IS POSITIVE. (MARIA FERNANDA CLAY DO) Diagnostic Imaging Comments CT ABDOMEN/PELVIS--PER RADIOLOGIST REPORT AT 1833 COMPARISON: Abdominopelvic CT 10/28/2021. FINDINGS: Some right basilar partial atelectasis and nonspecific airspace disease and a small right pleural effusion, new. There is chronic elevation of the right hemidiaphragm. The gallbladder is contracted with no appreciable intraluminal stone or sludge. There are however substantial inflammatory changes in the right upper quadrant near the gallbladder and pancreatic head, as well as proximal duodenal sweep. The pancreas, itself, at this unenhanced exam appears grossly unremarkable aside from some chronic calcification. There is a small volume free fluid in Morison's pouch. There is fluid tracking along the falciform ligament. There is no evidence for gastric outlet obstruction. There is some thickening of the proximal duodenum and duodenitis may be present. Despite the normal appearance of the pancreas, correlation with pancreatic enzymes encouraged as this could be inflammatory changes owing to pancreatitis, itself. No loculated collection, pseudocyst, abscess or findings of necrosis. There is substantial infiltration and inflammatory-like distortion of the fat tracking caudally along the right abdomen medial to the ascending colon which was nonobstructed. The air-containing appendix is visualized. That structure is normal. There is no hydroureteronephrosis. No radiodense urinary tract calculi. Within the pelvis there is a small volume of nonloculated free fluid. The urinary bladder is not well-distended; however, its wall is diffusely and substantially thickened, greater than would be expected merely owing to its lack of distention. Correlate with urinalysis as cystitis is suspected. There is no pneumatosis. There is no free air. IMPRESSION: 1. Nonspecific right adolfo-abdominal inflammatory changes superiorly with the epicenter at the proximal duodenum but extending caudally adjacent to the ascending colon which is unobstructed with a normal appendix. There is free fluid in the Morison's pouch as well as in the dependent pelvis with the urinary bladder thickening but normal appearance of the unobstructed kidneys. 2. Contracted gallbladder with no bile duct dilatation. There is new right pleural effusion and increased right basilar atelectasis and nonspecific infiltrates. Differential considerations would include pancreatitis, duodenitis or right-sided colitis accounting for the findings. In addition, presumed cystitis of the urinary bladder. ACUTE ABDOMEN XRAYS--PER RADIOLOGIST REPORT AT 1838 FINDINGS: The cardiac silhouette is within normal limits in size. No significant pulmonary vascular congestion. Small right basilar pleural-parenchymal opacity is present. The left lung base is clear. No significant left pleural effusion. No pneumothorax. No acute osseous abnormality within the chest. IMPRESSION: Hyperdensity is noted within the colon, felt to relate to enteric contrast or enteric contents. No abnormally dilated loops of bowel. No differential air-fluid levels. Reviewed: Reviewed by Me (MARIA FERNANDA CLAY DO) Departure Communication (Admissions) 1833--SPOKE WITH DR. LIZAMA, HE WILL REVIEW CT AND CALL BACK 1856--SPOKE WITH DR. LIZAMA, HE REVIEWED CT AND ADVISES ADMIT AND TO START PT ON ZOSYN. (MARIA FERNANDA CLAY DO) Impression Primary Impression: Right sided abdominal pain Additional Impressions: Chronic pancreatitis Alcoholism Sepsis Marijuana use Lab test positive for detection of COVID-19 virus Disposition: ADMITTED INPATIENT Condition: Stable Admissions Decision to Admit Reason: Admit from ER (General) Decision to Admit/Date: Jul 01, 2022 Time/Decision to Admit Time: 19:00 (MARIA FERNANDA CLAY DO) Departure-Patient Inst. Referrals: NO,LOCAL PHYSICIAN (PCP/Family) Primary Care Physician Scripts No Active Prescriptions or Reported Meds KALPANA KEYS DO Jul 01, 2022 17:20 MARIA FERNANDA CLAY DO Jul 01, 2022 17:53
[2022-07-01 17:38] LABS: BASOPHILS # (AUTO) 0.1 10^3/uL (0.0-0.1); BASOPHILS % (AUTO) 1 % (0-10); EOSINOPHILS # (AUTO) 0.5 10^3/uL (0.0-0.3); EOSINOPHILS % (AUTO) 4 % (0-10); HEMATOCRIT 38 % (40-54); HEMOGLOBIN 13.1 g/dL (13.3-17.7); LYMPHOCYTES % (AUTO) 18 % (12-44); MEAN CORPUSCULAR HEMOGLOBIN 33 pg (25-34); MEAN CORPUSCULAR HGB CONC 35 g/dL (32-36); MEAN CORPUSCULAR VOLUME 96 fL (80-99); MEAN PLATELET VOLUME 8.5 fL (9.0-12.2); MONOCYTES # (AUTO) 1.1 10^3/uL (0.0-1.0); MONOCYTES % (AUTO) 10 % (0-12); NEUTROPHILS # (AUTO) 7.7 10^3/uL (1.8-7.8); NEUTROPHILS % (AUTO) 67 % (42-75); PLATELET COUNT 683 10^3/uL (130-400); WHITE BLOOD COUNT 11.4 10^3/uL (4.3-11.0)
[2022-07-01] MEDS ORDERED: KETOROLAC 30 MG/ML VIAL IVP ONE (18:00)
[2022-07-01] MEDS ORDERED: LACTATED RINGERS 1,000 ML IV ONE ×2 (18:00→19:00)
[2022-07-01 18:02] LABS: BILIRUBIN,TOTAL 0.3 MG/DL (0.1-1.0); CALCIUM 8.7 MG/DL (8.5-10.1); CREATININE SERUM 0.63 MG/DL (0.60-1.30); TOTAL PROTEIN 6.7 GM/DL (6.4-8.2)
[2022-07-01 18:14] LABS: BILIRUBIN,URINE NEGATIVE (NEGATIVE); CLARITY,URINE CLEAR; COLOR,URINE ORANGE; GLUCOSE, URINE (UA) NEGATIVE (NEGATIVE); KETONES,URINE TRACE (NEGATIVE); LEUKOCYTE ESTERASE ,URINE NEGATIVE (NEGATIVE); NITRITE,URINE NEGATIVE (NEGATIVE); PH,URINE 7.5 (5-9); PROTEIN,URINE TRACE (NEGATIVE)
[2022-07-01 18:17] LABS: AMYLASE 420 U/L (25-125)
[2022-07-01 18:23] LABS: BACTERIA,URINE TRACE /HPF; HYALINE CASTS, URINE RARE /LPF; RBC,URINE 0-2 /HPF; SQUAMOUS EPITHELIAL CELL,UR 0-2 /HPF; WBC,URINE 0-2 /HPF
--- NOTE | 2022-07-01 18:30 | Diagnostic Imaging Report ---
PROCEDURE: CT urinary tract, rule out kidney stone. TECHNIQUE: Multiple contiguous axial images were obtained through the abdomen and pelvis without the use of intravenous contrast. Auto Exposure Controls were utilized during the CT exam to meet ALARA standards for radiation dose reduction. INDICATION: Right flank pain. COMPARISON: Abdominopelvic CT 10/28/2021. FINDINGS: Some right basilar partial atelectasis and nonspecific airspace disease and a small right pleural effusion, new. There is chronic elevation of the right hemidiaphragm. The gallbladder is contracted with no appreciable intraluminal stone or sludge. There are however substantial inflammatory changes in the right upper quadrant near the gallbladder and pancreatic head, as well as proximal duodenal sweep. The pancreas, itself, at this unenhanced exam appears grossly unremarkable aside from some chronic calcification. There is a small volume free fluid in Morison's pouch. There is fluid tracking along the falciform ligament. There is no evidence for gastric outlet obstruction. There is some thickening of the proximal duodenum and duodenitis may be present. Despite the normal appearance of the pancreas, correlation with pancreatic enzymes encouraged as this could be inflammatory changes owing to pancreatitis, itself. No loculated collection, pseudocyst, abscess or findings of necrosis. There is substantial infiltration and inflammatory-like distortion of the fat tracking caudally along the right abdomen medial to the ascending colon which was nonobstructed. The air-containing appendix is visualized. That structure is normal. There is no hydroureteronephrosis. No radiodense urinary tract calculi. Within the pelvis there is a small volume of nonloculated free fluid. The urinary bladder is not well-distended; however, its wall is diffusely and substantially thickened, greater than would be expected merely owing to its lack of distention. Correlate with urinalysis as cystitis is suspected. There is no pneumatosis. There is no free air. IMPRESSION: 1. Nonspecific right adolfo-abdominal inflammatory changes superiorly with the epicenter at the proximal duodenum but extending caudally adjacent to the ascending colon which is unobstructed with a normal appendix. There is free fluid in the Morison's pouch as well as in the dependent pelvis with the urinary bladder thickening but normal appearance of the unobstructed kidneys. 2. Contracted gallbladder with no bile duct dilatation. There is new right pleural effusion and increased right basilar atelectasis and nonspecific infiltrates. Differential considerations would include pancreatitis, duodenitis or right-sided colitis accounting for the findings. In addition, presumed cystitis of the urinary bladder. Dictated by: Dictated on workstation # [id number]
--- NOTE | 2022-07-01 18:34 | Diagnostic Imaging Report ---
INDICATION: Abdominal pain COMPARISON: CT from the same date TECHNIQUE: 3 radiographs of the chest and abdomen dated 07/01/2022. FINDINGS: The cardiac silhouette is within normal limits in size. No significant pulmonary vascular congestion. Small right basilar pleural parenchymal opacity is present. The left lung base is clear. No significant left pleural effusion. No pneumothorax. No acute osseous abnormality within the chest. Hyperdensity is noted within the colon, felt to relate to enteric contrast or enteric contents. No abnormally dilated loops of bowel. No differential air-fluid levels. No free air. Calcified splenic granuloma. No acute osseous abnormality. IMPRESSION: Small right basilar pleural-parenchymal opacity, felt to relate to a combination of pleural fluid with adjacent atelectasis and/or infiltrate. No acute radiographic abnormality within the abdomen. However, see separately dictated CT from same date for further findings within the abdomen itself. Dictated by: Dictated on workstation # [id number]
[2022-07-01 18:45] LABS: AMPHETAMINE SCREEN, URINE NEGATIVE (NEGATIVE); BARBITURATE SCREEN URINE NEGATIVE (NEGATIVE); BENZODIAZEPINES SCREEN URINE NEGATIVE (NEGATIVE); CANNABINOID SCREEN, URINE POSITIVE (NEGATIVE); COCAINE SCREEN URINE NEGATIVE (NEGATIVE); METHADONE STAT NEGATIVE (NEGATIVE); OPIATE SCREEN URINE NEGATIVE (NEGATIVE); OXYCODONE STAT NEGATIVE (NEGATIVE); PROPOXYPHENE STAT NEGATIVE (NEGATIVE); TRICYCLIC ANTIDEPRESSANTS SCRE NEGATIVE (NEGATIVE)
[2022-07-01 19:00] LABS: PROTHROMBIN TIME PATIENT 13.8 SEC (12.2-14.7)
[2022-07-01] MEDS ORDERED: fentaNYL INJ 100 MCG/2 ML AMP IVP ONE (19:00)
[2022-07-01] MEDS ORDERED: PIPERACILLIN SODIUM/TAZOBACTAM 4.5 GM in NS (IVPB) 100 ML IV ONE (19:00)
[2022-07-01 21:26] VITALS: BP 123/82
[2022-07-01] MEDS ORDERED: fentaNYL INJ 100 MCG/2 ML AMP IV PRN (21:45)
[2022-07-01] MEDS ORDERED: ONDANSETRON 4 MG/2 ML (SDV) Z0FRAN IV PRN (21:45)
[2022-07-01] MEDS: D5 1/2 NS W/KCL 20 MEQ/L 1,000 ML IV SCH (21:58)
--- NOTE | 2022-07-01 22:37 | Consultation - Surgery ---
History of Present Illness History of Present Illness Patient Consulted On(gregorio/time) 07/01/22 22:31 Time Seen by Provider: 22:01 History of Present Illness Surgery asked to consult regarding severe abdominal pain. HPI per ED: 41-year-old male presents with right-sided abdominal pain. Patient reports he started encountering the mid right upper quadrant about a week ago. He reports over the last 2 days is significant worsening. He has significant amount of pain on the right side especially down the right lower quadrant. Patient denies any fever, chills, nausea or vomiting. Patient also has some pain in the flank. He denies any hematuria. Patient does have a history of pancreatitis. When I spoke to pt katalina he said he's had "back of my mind pain" ever since his first pancreatitis episode. However, that pain and pancreatitis episodes always seem to stay midline epigastric. He said this pain started about a week ago and has been getting worse since then. This time the pain started subxyphoid and went to pelvic area and then up right side. Rating the pain as 10 out of 10 and Fentanyl is not controlling it. It is a sharp, stabbing pain that shoots up and down right side mostly; but now "all over". He has never had pain like this before, thought maybe he had pulled something and tried to ignore it. He states when he usually gets the pancreatitis, "I can change my diet and it'll get better and go away". Allergies and Home Medications Allergies Coded Allergies: No Known Drug Allergies (Unverified , 02/08/21) Patient Home Medication List Home Medication List Reviewed: Yes No Active Prescriptions or Reported Meds Past Pokvrug-Igmwvr-Vtemdq Hx Patient Social History Smoking Status: Current Everyday Smoker Alcohol Use?: No Substance type: Marijuana Have you traveled recently?: No Surgeries History of Surgeries: No Respiratory History of Respiratory Disorde: No Cardiovascular History of Cardiac Disorders: No Neurological History of Neurological Disord: No Reproductive System Hx Reproductive Disorders: No Genitourinary History of Genitourinary Disor: No Gastrointestinal History of Gastrointestinal Di: Yes Gastrointestinal Disorders: Pancreatitis Musculoskeletal History of Musculoskeletal Dis: No Endocrine History of Endocrine Disorders: No HEENT History of HEENT Disorders: No Loss of Vision: Denies Hearing Impairment: Denies Cancer History of Cancer: No Psychosocial History of Psychiatric Problem: Yes (ALCOHOLISM AND MARIJUANA USE. ) Integumentary History of Skin or Integumenta: No (TATTOOS) Blood Transfusions History of Blood Disorders: No Family Medical History Significant Family History: Cancer (Uncle had brain CA), Other Conditions/Hx (denied his parents had DM or HTN) Review of Systems-General Constitutional: chills (night sweats), malaise, weakness EENTM: No blurred vision, No mouth swelling, No epistaxis Respiratory: No cough, No dyspnea on exertion Cardiovascular: No chest pain, No palpitations, No syncope Gastrointestinal: abdominal pain, heartburn; No jaundice; loss of appetite, nausea; No vomiting Genitourinary: No dysuria, No frequency, No hematuria Musculoskeletal: No joint pain, No joint swelling; muscle pain, muscle stiffn ess Skin: No change in color, No change in hair/nails Psychiatric/Neurological: Denies Anxiety, Denies Depressed, Denies Seizure, Denies Tremors Physical Exam-General Problems Physical Exam Vital Signs Vital Signs - First Documented 07/01/22 17:02 Temp 36.6 Pulse 107 Resp 20 B/P (MAP) 134/95 (108) Pulse Ox 99 O2 Delivery Room Air Capillary Refill : Less Than 3 Seconds General Appearance: WD/WN, moderate distress (secondary to pain) Eyes: Bilateral Eye PERRL, Bilateral Eye EOMI HEENT: pharynx normal; No scleral icterus (R), No scleral icterus (L) Neck: non-tender, supple Respiratory: lungs clear, normal breath sounds, no respiratory distress, no accessory muscle use Cardiovascular: regular rate, rhythm, no murmur Gastrointestinal: no organomegaly, distended, guarding (involuntary on right, voluntary on left), rebound, hernia (right inguinal) Rectal: deferred Back: no CVA tenderness, no vertebral tenderness Extremities: no pedal edema, no calf tenderness, normal capillary refill Neurologic/Psychiatric: client development manager II-XII nml as tested, alert, normal mood/affect, oriented x 3 Skin: normal color, warm/dry Lymphatic: no adenopathy (neck, axilla or groin) Data Review Labs Laboratory Tests 07/01/22 17:25: White Blood Count 11.4H, Red Blood Count 3.92L, Hemoglobin 13.1L, Hematocrit 38L , Mean Corpuscular Volume 96, Mean Corpuscular Hemoglobin 33, Mean Corpuscular Hemoglobin Concent 35, Red Cell Distribution Width 12.5, Platelet Count 683H, Mean Platelet Volume 8.5L, Immature Granulocyte % (Auto) 1, Neutrophils (%) (Auto) 67, Lymphocytes (%) (Auto) 18, Monocytes (%) (Auto) 10, Eosinophils (%) (Auto) 4, Basophils (%) (Auto) 1, Neutrophils # (Auto) 7.7, Lymphocytes # (Auto) 2.0, Monocytes # (Auto) 1.1H, Eosinophils # (Auto) 0.5H, Basophils # (Auto) 0.1, Immature Granulocyte # (Auto) 0.1, Prothrombin Time 13.8, INR Comment 1.0, Activated Partial Thromboplast Time 31, Sodium Level 137, Potassium Level 4.0, Chloride Level 104, Carbon Dioxide Level 24, Anion Gap 9, Blood Urea Nitrogen 11, Creatinine 0.63, Estimat Glomerular Filtration Rate 122, BUN/Creatinine Ratio 17, Glucose Level 123H, Lactic Acid Level 0.65, Calcium Level 8.7, Corrected Calcium 9.5, Total Bilirubin 0.3, Aspartate Amino Transf (AST/SGOT) 15, Alanine Aminotransferase (ALT/SGPT) 12, Alkaline Phosphatase 56, C-Reactive Protein High Sensitivity 7.38H, Total Protein 6.7, Albumin 3.0L, Amylase Level 420H, Lipase 405H, Procalcitonin 0.09, Serum Alcohol < 10 07/01/22 18:08: Urine Color ORANGE, Urine Clarity CLEAR, Urine pH 7.5, Urine Specific [place] 1.020, Urine Protein TRACEH, Urine Glucose (UA) NEGATIVE, Urine Ketones TRACEH, Urine Nitrite NEGATIVE, Urine Bilirubin NEGATIVE, Urine Urobilinogen 1.0, Urine Leukocyte Esterase NEGATIVE, Urine RBC (Auto) NEGATIVE, Urine RBC 0-2, Urine WBC 0-2, Urine Squamous Epithelial Cells 0-2, Urine Crystals NONE, Urine Bacteria TRACE, Urine Casts PRESENT, Urine Hyaline Casts RARE, Urine Mucus MODERATEH, Urine Culture Indicated NO, Urine Opiates Screen NEGATIVE, Urine Oxycodone Screen NEGATIVE, Urine Methadone Screen NEGATIVE, Urine Propoxyphene Screen NEGATIVE, Urine Barbiturates Screen NEGATIVE, Ur Tricyclic Antidepressants Screen NEGATIVE, Urine Phencyclidine Screen NEGATIVE, Urine Amphetamines Screen NEGATIVE, Urine Methamphetamines Screen NEGATIVE, Urine Benzodiazepines Screen NEGATIVE, Urine Cocaine Screen NEGATIVE, Urine Cannabinoids Screen POSITIVEH 07/01/22 19:24: Influenza Type A (RT-PCR) Not Detected, Influenza Type B (RT-PCR) Not Detected, SARS-CoV-2 RNA (RT-PCR) DetectedH Radiology Date of Exam:07/01/22 CT ABD/PELVIS WO(KIDNEY STONE) PROCEDURE: CT urinary tract, rule out kidney stone. TECHNIQUE: Multiple contiguous axial images were obtained through the abdomen and pelvis without the use of intravenous contrast. Auto Exposure Controls were utilized during the CT exam to meet ALARA standards for radiation dose reduction. INDICATION: Right flank pain. COMPARISON: Abdominopelvic CT 10/28/2021. FINDINGS: Some right basilar partial atelectasis and nonspecific airspace disease and a small right pleural effusion, new. There is chronic elevation of the right hemidiaphragm. The gallbladder is contracted with no appreciable intraluminal stone or sludge. There are however substantial inflammatory changes in the right upper quadrant near the gallbladder and pancreatic head, as well as proximal duodenal sweep. The pancreas, itself, at this unenhanced exam appears grossly unremarkable aside from some chronic calcification. There is a small volume free fluid in Morison's pouch. There is fluid tracking along the falciform ligament. There is no evidence for gastric outlet obstruction. There is some thickening of the proximal duodenum and duodenitis may be present. Despite the normal appearance of the pancreas, correlation with pancreatic enzymes encouraged as this could be inflammatory changes owing to pancreatitis, itself. No loculated collection, pseudocyst, abscess or findings of necrosis. There is substantial infiltration and inflammatory-like distortion of the fat tracking caudally along the right abdomen medial to the ascending colon which was nonobstructed. The air-containing appendix is visualized. That structure is normal. There is no hydroureteronephrosis. No radiodense urinary tract calculi. Within the pelvis there is a small volume of nonloculated free fluid. The urinary bladder is not well-distended; however, its wall is diffusely and substantially thickened, greater than would be expected merely owing to its lack of distention. Correlate with urinalysis as cystitis is suspected. There is no pneumatosis. There is no free air. IMPRESSION: 1. Nonspecific right adolfo-abdominal inflammatory changes superiorly with the epicenter at the proximal duodenum but extending caudally adjacent to the ascending colon which is unobstructed with a normal appendix. There is free fluid in the Morison's pouch as well as in the dependent pelvis with the urinary bladder thickening but normal appearance of the unobstructed kidneys. 2. Contracted gallbladder with no bile duct dilatation. There is new right pleural effusion and increased right basilar atelectasis and nonspecific infiltrates. Differential considerations would include pancreatitis, duodenitis or right-sided colitis accounting for the findings. In addition, presumed cystitis of the urinary bladder. Dictated by: Dictated on workstation # [id number] Dict: 07/01/227 Trans: 07/01/22 183 PJE [id number] Interpreted by: AHSAN CANDELARIA Electronically signed by: AHSAN CANDELARIA 07/01/221835 Assessment/Plan Assessment/Plan Assessment/Plan Peritonitis - Diffuse Free fluid in abdomen Pancreatitis Right sided abd pain R/O sepsis Pt was started on IV ABX, IV fluids, and pain meds. He is on the border of sepsis protocol and will continue IV fluids and ABX; but will switch to Morphine for pain. He has elevated pancreatic enzymes and when I reviewed the CT I think the inflammation and fluid appears to come from either head of pancreas or duodenum. The inflammation e xtends all the way down right side and this is where he is most tender. I discussed case with ED provider. I will keep him NPO because food would make anything; duodenum or pancreas worse and in case he has to go to the OR. Right now I don't see any pe rforation and WBC only mildly elevated. Therefore, will monitor labs and abdominal exam. DARWIN LIZAMA DO Jul 01, 2022 22:36
[2022-07-01 23:21] VITALS: BP 134/95
[2022-07-01] MEDS ORDERED: RT-ALBUTEROL SULF 2.5 MG/3 ML PRE-MIX VIAL INH PRN (23:30)
[2022-07-01] MEDS: morphine INJ 4 MG/ML 1 ML (VIAL/SYRINGE) IVP PRN (23:30)
[2022-07-01 23:31] VITALS: BP 140/89
[2022-07-02] MEDS: D5 1/2 NS W/KCL 20 MEQ/L 1,000 ML IV SCH ×6 (03:10→23:08)
[2022-07-02 03:11] VITALS: BP 123/81
[2022-07-02] MEDS: PIPERACILLIN SODIUM/TAZOBACTAM 4.5 GM in NS (IVPB) 100 ML IV SCH ×3 (03:11→20:01)
[2022-07-02] MEDS: KETOROLAC 30 MG/ML VIAL IV PRN ×3 (03:11→19:00)
[2022-07-02] MEDS: morphine INJ 4 MG/ML 1 ML (VIAL/SYRINGE) IVP PRN ×6 (03:11→20:49)
[2022-07-02 05:09] LABS: BASOPHILS # (AUTO) 0.1 10^3/uL (0.0-0.1); BASOPHILS % (AUTO) 1 % (0-10); EOSINOPHILS # (AUTO) 0.5 10^3/uL (0.0-0.3); EOSINOPHILS % (AUTO) 6 % (0-10); HEMATOCRIT 35 % (40-54); HEMOGLOBIN 12.2 g/dL (13.3-17.7); LYMPHOCYTES # (AUTO) 1.4 10^3/uL (1.0-4.0); LYMPHOCYTES % (AUTO) 17 % (12-44); MEAN CORPUSCULAR HEMOGLOBIN 34 pg (25-34); MEAN CORPUSCULAR HGB CONC 35 g/dL (32-36); MEAN CORPUSCULAR VOLUME 98 fL (80-99); MEAN PLATELET VOLUME 8.5 fL (9.0-12.2); MONOCYTES # (AUTO) 1.2 10^3/uL (0.0-1.0); MONOCYTES % (AUTO) 13 % (0-12); NEUTROPHILS # (AUTO) 5.5 10^3/uL (1.8-7.8); NEUTROPHILS % (AUTO) 63 % (42-75); PLATELET COUNT 546 10^3/uL (130-400); WHITE BLOOD COUNT 8.6 10^3/uL (4.3-11.0)
[2022-07-02 05:27] LABS: ALBUMIN 2.6 GM/DL (3.2-4.5); BILIRUBIN,TOTAL 0.5 MG/DL (0.1-1.0); CALCIUM 8.3 MG/DL (8.5-10.1); CREATININE SERUM 0.64 MG/DL (0.60-1.30); POTASSIUM 4.3 MMOL/L (3.6-5.0); TOTAL PROTEIN 5.9 GM/DL (6.4-8.2)
[2022-07-02] MEDS ORDERED: CATHETER FLUSH 10 ML SYR IVP PRN (06:45)
[2022-07-02 07:56] VITALS: BP 107/79
--- NOTE | 2022-07-02 08:21 | Progress Note - Surgery ---
LAZARO KARIMI 07/02/22 0821: Subjective Date Seen by a Provider: Jul 02, 2022 Time Seen by a Provider: 07:30 Subjective/Events-last exam The patient is lying in bed at time of evaluation. He reports his pain is improved compared to yesterday and has not changed in nature or location, still along the right abdomen. The patient indicates he has not stooled since arrival to the hospital but has urinated without issue. He has no new complaints or concerns at this time. Review of Systems General: No Chills, No Fatigue HEENT: No Head Aches Pulmonary: No Dyspnea, No Cough Cardiovascular: No: Chest Pain Gastrointestinal: Abdominal Pain Genitourinary: No Dysuria, No Retention Focused Exam Lactate Level 07/01/22 17:25: Lactic Acid Level 0.65 Time of Focused Exam: 18:45 Objective Exam Vital Signs Date Time Temp Pulse Resp B/P (MAP) Pulse Ox O2 Delivery O2 Flow Rate FiO2 07/02/22 07:56 36.7 87 18 107/79 (88) 92 Room Air 07/02/22 07:00 83 07/02/22 03:11 37.3 82 18 123/81 (95) 96 Room Air 07/02/22 01:00 95 07/01/22 23:31 37.5 96 18 140/89 (106) 96 Room Air 07/01/22 23:21 36.6 107 99 21 07/01/22 22:17 100 07/01/22 21:30 Room Air 07/01/22 21:26 37.6 94 20 123/82 (96) 99 Room Air 07/01/22 20:50 36.6 91 16 112/73 98 Room Air 07/01/22 17:02 36.6 107 20 134/95 (108) 99 Room Air I & O 07/02/22 07:00 Intake Total 2100 ml Balance 2100 ml Capillary Refill : Less Than 3 Seconds General Appearance: Mild Distress HEENT: PERRL/EOMI Respiratory: Lungs Clear, Normal Breath Sounds, No Accessory Muscle Use, No Respiratory Distress Cardiovascular: Regular Rate, Rhythm, No Edema, No Murmur Peripheral Pulses: 2+ Dorsalis Pedis (R), 2+ Left Dors-Pedis (L), 2+ Radial Pulses (R), 2+ Radial Pulses (L) Gastrointestinal: soft, distended, guarding (involuntary on the right, none on the left), tenderness Extremity: No Calf Tenderness, No Pedal Edema Neurologic/Psychiatric: Alert, Oriented x3 Results Lab Laboratory Tests 07/01/22 17:25: White Blood Count 11.4H, Red Blood Count 3.92L, Hemoglobin 13.1L, Hematocrit 38L , Mean Corpuscular Volume 96, Mean Corpuscular Hemoglobin 33, Mean Corpuscular Hemoglobin Concent 35, Red Cell Distribution Width 12.5, Platelet Count 683H, Mean Platelet Volume 8.5L, Immature Granulocyte % (Auto) 1, Neutrophils (%) (Auto) 67, Lymphocytes (%) (Auto) 18, Monocytes (%) (Auto) 10, Eosinophils (%) (Auto) 4, Basophils (%) (Auto) 1, Neutrophils # (Auto) 7.7, Lymphocytes # (Auto) 2.0, Monocytes # (Auto) 1.1H, Eosinophils # (Auto) 0.5H, Basophils # (Auto) 0.1, Immature Granulocyte # (Auto) 0.1, Prothrombin Time 13.8, INR Comment 1.0, Activated Partial Thromboplast Time 31, Sodium Level 137, Potassium Level 4.0, Chloride Level 104, Carbon Dioxide Level 24, Anion Gap 9, Blood Urea Nitrogen 11, Creatinine 0.63, Estimat Glomerular Filtration Rate 122, BUN/Creatinine Rati o 17, Glucose Level 123H, Lactic Acid Level 0.65, Calcium Level 8.7, Corrected Calcium 9.5, Total Bilirubin 0.3, Aspartate Amino Transf (AST/SGOT) 15, Alanine Aminotransferase (ALT/SGPT) 12, Alkaline Phosphatase 56, C-Reactive Protein High Sensitivity 7.38H, Total Protein 6.7, Albumin 3.0L, Amylase Level 420H, Lipase 405H, Procalcitonin 0.09, Serum Alcohol < 10 07/01/22 18:08: Urine Color ORANGE, Urine Clarity CLEAR, Urine pH 7.5, Urine Specific [place] 1.020, Urine Protein TRACEH, Urine Glucose (UA) NEGATIVE, Urine Ketones TRACEH, Urine Nitrite NEGATIVE, Urine Bilirubin NEGATIVE, Urine Urobilinogen 1.0, Urine Leukocyte Esterase NEGATIVE, Urine RBC (Auto) NEGATIVE, Urine RBC 0-2, Urine WBC 0-2, Urine Squamous Epithelial Cells 0-2, Urine Crystals NONE, Urine Bacteria TRACE, Urine Casts PRESENT, Urine Hyaline Casts RARE, Urine Mucus MODERATEH, Urine Culture Indicated NO, Urine Opiates Screen NEGATIVE, Urine Oxycodone Screen NEGATIVE, Urine Methadone Screen NEGATIVE, Urine Propoxyphene Screen NEGATIVE, Urine Barbiturates Screen NEGATIVE, Ur Tricyclic Antidepressants Screen NEGATIVE, Urine Phencyclidine Screen NEGATIVE, Urine Amphetamines Screen NEGATIVE, Urine Methamphetamines Screen NEGATIVE, Urine Benzodiazepines Screen NEGATIVE, Urine Cocaine Screen NEGATIVE, Urine Cannabinoids Screen POSITIVEH 07/01/22 19:24: Influenza Type A (RT-PCR) Not Detected, Influenza Type B (RT-PCR) Not Detected, SARS-CoV-2 RNA (RT-PCR) DetectedH 07/02/22 05:00: White Blood Count 8.6, Red Blood Count 3.60L, Hemoglobin 12.2L, Hematocrit 35L, Mean Corpuscular Volume 98, Mean Corpuscular Hemoglobin 34, Mean Corpuscular Hemoglobin Concent 35, Red Cell Distribution Width 12.6, Platelet Count 546H, Mean Platelet Volume 8.5L, Immature Granulocyte % (Auto) 1, Neutrophils (%) (Auto) 63, Lymphocytes (%) (Auto) 17, Monocytes (%) (Auto) 13H, Eosinophils (%) (Auto) 6, Basophils (%) (Auto) 1, Neutrophils # (Auto) 5.5, Lymphocytes # (Auto) 1.4, Monocytes # (Auto) 1.2H, Eosinophils # (Auto) 0.5H, Basophils # (Auto) 0.1, Immature Granulocyte # (Auto) 0.1, Sodium Level 137, Potassium Level 4.3, Chloride Level 105, Carbon Dioxide Level 24, Anion Gap 8, Blood Urea Nitrogen 8, Creatinine 0.64, Estimat Glomerular Filtration Rate 121, BUN/Creatinine Ratio 13, Glucose Level 92, Calcium Level 8.3L, Corrected Calcium 9.4, Total Bilirubin 0.5, Aspartate Amino Transf (AST/SGOT) 10, Alanine Aminotransferase (ALT/SGPT) 8, Alkaline Phosphatase 47, Total Protein 5.9L, Albumin 2.6L, Amylase Level 482H , Lipase 531H Assessment/Plan Assessment/Plan Assessment/Plan Peritonitis - Diffuse Free fluid in abdomen Pancreatitis Right sided abd pain R/O sepsis Continue IV antibiotics, fluid, pain medication regimen for symptom control. Pancreatic enzymes are elevated further compared to yesterday though pain is reportedly decreased. Consider repeat imaging and further evaluation for need to have surgery. JUAN ANTONIO CARNEY DO 07/02/22 1040: Subjective Time Seen by a Provider: 10:12 Subjective/Events-last exam Pt seen and examined, states his pain is better but not gone. He is hungry and wants to eat and drink. Review of Systems General: No Chills HEENT: No Head Aches Pulmonary: No Dyspnea, No Cough Cardiovascular: No: Chest Pain Gastrointestinal: Abdominal Pain Genitourinary: No Dysuria Objective Exam General Appearance: WD/WN, Mild Distress HEENT: PERRL/EOMI Respiratory: Lungs Clear, Normal Breath Sounds, No Accessory Muscle Use, No Respiratory Distress Cardiovascular: Regular Rate, Rhythm, No Murmur Gastrointestinal: soft, distended, guarding (involuntary on the right, none on the left), tenderness Extremity: No Calf Tenderness, No Pedal Edema Neurologic/Psychiatric: Alert, Oriented x3 Assessment/Plan Assessment/Plan Assessment/Plan Peritonitis - basically only on right side Free fluid in abdomen Pancreatitis - enzymes worse today Right sided abd pain Doubt he has sepsis Continue IV antibiotics, fluid, pain medication regimen for symptom control. Pancreatic enzymes are elevated further compared to yesterday though pain is reportedly decreased. Keep NPO until enzymes trend down and pain almost gone. Supervisory-Addendum Brief Verification & Attestation Participated in pt care: history, MDM, physical Personally performed: exam, history, MDM, supervision of care Care discussed with: Medical Student Procedures: n/a Verification and Attestation of Medical Student E/M Service A medical student performed and documented this service. I then reviewed and verified all information documented by the medical student and made modifications to such information, when appropriate. I personally performed a physical exam, medical decision making and then discussed any differences between the notes and made revisions as necessary to create one note. Juan Antonio Carney , 07/02/22 , 10:40 LAZARO KARIMI Jul 02, 2022 08:21 JUAN ANTONIO CARNEY DO Jul 02, 2022 10:40
--- NOTE | 2022-07-02 10:37 | Diagnostic Imaging Report ---
INDICATION: Lower respiratory infection, COVID. EXAMINATION: Portable chest at 04:01 a.m. FINDINGS: Heart size and pulmonary vascularity are normal. Lungs are clear. There are no effusions or pneumothoraces. IMPRESSION: No acute abnormalities in the chest. Dictated by: Dictated on workstation # [id number]
[2022-07-02 11:15] VITALS: BP 118/78
[2022-07-02] MEDS ORDERED: MULT-1136 PO (12:04)
[2022-07-02] MEDS ORDERED: L.AC1CAP6 PO (12:04)
[2022-07-02 16:09] VITALS: BP 124/73
[2022-07-02 19:36] VITALS: BP 101/65
[2022-07-02 23:19] VITALS: BP 116/75
[2022-07-03] MEDS: PIPERACILLIN SODIUM/TAZOBACTAM 4.5 GM in NS (IVPB) 100 ML IV SCH ×3 (03:53→19:42)
[2022-07-03 04:01] VITALS: BP 110/64
[2022-07-03] MEDS: morphine INJ 4 MG/ML 1 ML (VIAL/SYRINGE) IVP PRN ×6 (04:01→22:33)
[2022-07-03] MEDS: D5 1/2 NS W/KCL 20 MEQ/L 1,000 ML IV SCH ×4 (05:50→22:32)
[2022-07-03 07:56] VITALS: BP 132/82
--- NOTE | 2022-07-03 10:17 | Progress Note - Surgery ---
CAILIN MCINTOSH 07/03/22 1017: Subjective Date Seen by a Provider: Jul 03, 2022 Time Seen by a Provider: 10:13 Subjective/Events-last exam Pt resting comfortably in bed. States his pain has improved but still at 5/10. He has some nausea, but no vomiting. He has not had a bowel movement since admission. He is currently NPO. Reports he is urinating without difficulty. Denies fever, chills, sweats, chest pain, shortness of breath. Review of Systems General: No Chills, No Night Sweats HEENT: No Visual Changes, No Sore Throat Pulmonary: No Dyspnea, No Cough Cardiovascular: No: Chest Pain Gastrointestinal: Nausea, Abdominal Pain (right sided); No: Vomiting, Diarrhea Genitourinary: No Dysuria, No Frequency Musculoskeletal: No: leg pain Neurological: No: Weakness, Numbness Focused Exam Lactate Level 07/01/22 17:25: Lactic Acid Level 0.65 Time of Focused Exam: 18:45 Objective Exam Vital Signs Date Time Temp Pulse Resp B/P (MAP) Pulse Ox O2 Delivery O2 Flow Rate FiO2 07/03/22 08:30 Room Air 07/03/22 07:56 36.4 75 20 132/82 (99) 96 Room Air 07/03/22 07:00 73 07/03/22 04:01 36.1 73 16 110/64 (79) 95 Room Air 07/03/22 01:00 70 07/02/22 23:19 36.4 59 16 116/75 (89) 95 Room Air 07/02/22 20:00 Room Air 07/02/22 19:36 36.4 71 18 101/65 (77) 94 Room Air 07/02/22 19:00 72 07/02/22 18:58 Room Air 07/02/22 18:58 Room Air 07/02/22 17:08 37.0 07/02/22 16:37 95 Room Air 0.00 07/02/22 16:09 37.0 85 22 124/73 (90) 96 Room Air 07/02/22 14:14 36.7 07/02/22 13:00 80 07/02/22 12:08 36.7 07/02/22 11:15 36.7 84 18 118/78 (91) 93 Room Air 07/02/22 10:42 36.7 I & O 07/03/22 07:00 Intake Total 3400 ml Balance 3400 ml Capillary Refill : Less Than 3 Seconds General Appearance: No Apparent Distress, WD/WN HEENT: PERRL/EOMI, Moist Mucous Membranes Neck: Non Tender, Supple Respiratory: Chest Non Tender, No Accessory Muscle Use, No Respiratory Distress Cardiovascular: Regular Rate, Rhythm, No Murmur Peripheral Pulses: 2+ Dorsalis Pedis (R), 2+ Left Dors-Pedis (L), 2+ Radial Pulses (R), 2+ Radial Pulses (L) Gastrointestinal: soft; No distended, No guarding, No rebound; tenderness (mild RUQ and RLQ tenderness. ) Extremity: No Calf Tenderness, No Pedal Edema Neurologic/Psychiatric: Alert, Oriented x3, Normal Mood/Affect Skin: Normal Color, Warm/Dry Lymphatic: No Adenopathy (no supraclavicular adenopathy ) Results Lab Microbiology 07/01/22 Blood Culture - Preliminary, Resulted Staph, Coag Neg (OUTREACH TEAM MEMBER) See Comments Assessment/Plan Assessment/Plan Assessment/Plan Peritonitis - basically only on right side Free fluid in abdomen Pancreatitis - enzymes worse today Right sided abd pain Doubt he has sepsis - white count normal and no fever Continue IV antibiotics, fluid, pain medication regimen for symptom control. Continue to monitor pancreatic enzymes. Keep NPO until enzymes trend down and pain almost gone. AFLGUNI TAYLOR DO 07/04/22 1209: Subjective Subjective/Events-last exam Patient states abdominal pain has improved some since yesterday. NPO currently. Still with some nausea, no emesis. Reports no respiratory symptoms. Denies fever sweats chills shortness of breath or chest pain. Objective Exam General Appearance: No Apparent Distress, WD/WN HEENT: PERRL/EOMI, Normal ENT Inspection Neck: Normal Inspection, Non Tender Respiratory: Chest Non Tender, No Accessory Muscle Use, No Respiratory Distress Cardiovascular: Regular Rate, Rhythm, No JVD Gastrointestinal: soft; No distended, No guarding; tenderness (mild RUQ and RLQ tenderness. ) Extremity: No Calf Tenderness Neurologic/Psychiatric: Alert, Oriented x3, Normal Mood/Affect Skin: Normal Color, Warm/Dry Lymphatic: No Adenopathy Assessment/Plan Assessment/Plan Assessment/Plan Free fluid in abdomen Pancreatitis Right sided abd pain Continue IV antibiotics, IV fluid, pain medication regimen for symptom control. Continue to monitor pancreatic enzymes. Keep NPO . Supervisory-Addendum Brief Verification & Attestation Participated in pt care: history, MDM, physical Personally performed: exam, history, MDM, supervision of care Care discussed with: Medical Student Procedures: n/a Results interpretation: Verified all documentation Verification and Attestation of Medical Student E/M Service A medical student performed and documented this service in my presence. I reviewed and verified all information documented by the medical student and made modifications to such information, when appropriate. I personally performed the physical exam and medical decision making. Falguni Taylor, Jul 03, 2022,18:09 CAILIN MCINTOSH Jul 03, 2022 10:17 FALGUNI TAYLOR DO Jul 04, 2022 12:09
[2022-07-03 11:13] LABS: BASOPHILS # (AUTO) 0.1 10^3/uL (0.0-0.1); BASOPHILS % (AUTO) 1 % (0-10); EOSINOPHILS # (AUTO) 0.6 10^3/uL (0.0-0.3); EOSINOPHILS % (AUTO) 9 % (0-10); HEMATOCRIT 36 % (40-54); HEMOGLOBIN 13.2 g/dL (13.3-17.7); LYMPHOCYTES # (AUTO) 1.6 10^3/uL (1.0-4.0); LYMPHOCYTES % (AUTO) 21 % (12-44); MEAN CORPUSCULAR HEMOGLOBIN 37 pg (25-34); MEAN CORPUSCULAR HGB CONC 37 g/dL (32-36); MEAN CORPUSCULAR VOLUME 100 fL (80-99); MEAN PLATELET VOLUME 8.5 fL (9.0-12.2); MONOCYTES # (AUTO) 0.6 10^3/uL (0.0-1.0); MONOCYTES % (AUTO) 8 % (0-12); NEUTROPHILS # (AUTO) 4.6 10^3/uL (1.8-7.8); NEUTROPHILS % (AUTO) 61 % (42-75); PLATELET COUNT 616 10^3/uL (130-400); WHITE BLOOD COUNT 7.5 10^3/uL (4.3-11.0)
[2022-07-03 11:21] LABS: ALBUMIN 2.7 GM/DL (3.2-4.5); POTASSIUM 4.4 MMOL/L (3.6-5.0)
[2022-07-03 11:22] LABS: CALCIUM 8.5 MG/DL (8.5-10.1)
[2022-07-03 11:24] LABS: TOTAL PROTEIN 6.4 GM/DL (6.4-8.2)
[2022-07-03 11:25] LABS: BILIRUBIN,TOTAL 0.3 MG/DL (0.1-1.0)
[2022-07-03 11:27] LABS: CREATININE SERUM 0.65 MG/DL (0.60-1.30)
[2022-07-03 11:30] VITALS: BP 123/82
--- NOTE | 2022-07-03 14:09 | Diagnostic Imaging Report ---
PROCEDURE: US Gallbladder. TECHNIQUE: Multiple Real-time grayscale images were obtained over the right upper quadrant in various projections. INDICATION: Midline abdominal pain. FINDINGS: The liver is enlarged at 20 cm. The portal vein is patent and shows normal direction of flow. No liver mass is detected. The gallbladder is without stones or sludge. No wall thickening or biliary ductal dilatation is identified. The pancreas was obscured by bowel gas. The upper abdominal aorta and IVC were obscured by bowel gas. The mid abdominal aorta is nonaneurysmal. The right kidney is without calculus or hydronephrosis. There is no ascites. IMPRESSION: No evidence of cholelithiasis or acute cholecystitis. Dictated by: Dictated on workstation # [id number]
[2022-07-03 16:32] VITALS: BP 124/77
[2022-07-03] MEDS: SIMETHICONE 80 MG (MYLICON) CHEW PO SCH ×2 (17:17→19:43)
[2022-07-03 20:11] VITALS: BP 122/85
[2022-07-03 23:57] VITALS: BP 132/76
[2022-07-04] MEDS: PIPERACILLIN SODIUM/TAZOBACTAM 4.5 GM in NS (IVPB) 100 ML IV SCH ×3 (04:12→20:23)
[2022-07-04] MEDS: D5 1/2 NS W/KCL 20 MEQ/L 1,000 ML IV SCH ×5 (04:15→22:22)
[2022-07-04 04:55] VITALS: BP 110/73
[2022-07-04 07:56] VITALS: BP 107/67
[2022-07-04] MEDS: SIMETHICONE 80 MG (MYLICON) CHEW PO SCH ×4 (08:18→20:24)
[2022-07-04 09:37] VITALS: BP 107/67
[2022-07-04 12:02] VITALS: BP 124/77
--- NOTE | 2022-07-04 12:13 | Progress Note - Surgery ---
Subjective Date Seen by a Provider: Jul 04, 2022 Time Seen by a Provider: 12:10 Subjective/Events-last exam Continues to have less pain. Feeling better. No respiratory symptoms. Denies n/v fever sweats chills shortness of breath or chest pain. Focused Exam Lactate Level 07/01/22 17:25: Lactic Acid Level 0.65 Time of Focused Exam: 18:45 Objective Exam Vital Signs Date Time Temp Pulse Resp B/P (MAP) Pulse Ox O2 Delivery O2 Flow Rate FiO2 07/04/22 09:37 36.1 52 96 21 07/04/22 09:15 Room Air 0.00 07/04/22 08:48 36.1 07/04/22 08:18 36.1 07/04/22 08:13 96 Room Air 0.00 07/04/22 07:56 36.1 52 20 107/67 (80) 96 Room Air 07/04/22 07:00 52 07/04/22 04:55 35.9 65 20 110/73 (85) 96 Room Air 07/04/22 01:00 51 07/03/22 23:57 36.2 64 20 132/76 (94) 97 Room Air 07/03/22 20:11 36.3 67 16 122/85 (97) 96 Room Air 07/03/22 19:50 Room Air 07/03/22 19:00 80 07/03/22 16:32 36.6 67 16 124/77 (93) 96 Room Air 07/03/22 13:00 72 I & O 07/04/22 07:00 Intake Total 2300 ml Balance 2300 ml Capillary Refill : Less Than 3 Seconds General Appearance: No Apparent Distress, WD/WN HEENT: PERRL/EOMI, Normal ENT Inspection Neck: Normal Inspection, Non Tender Respiratory: Chest Non Tender, No Accessory Muscle Use, No Respiratory Distress Cardiovascular: Regular Rate, Rhythm, No JVD Peripheral Pulses: 2+ Dorsalis Pedis (R), 2+ Left Dors-Pedis (L), 2+ Radial Pulses (R), 2+ Radial Pulses (L) Gastrointestinal: soft; No distended, No guarding; tenderness (minimal RUQ and RLQ tenderness. 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 Continue to monitor pancreatic enzymes. Gb u/s no stones or evidence of acute cholecystitis Start FALGUNI Barajas DO Jul 04, 2022 12:13
[2022-07-04 16:20] VITALS: BP 113/72
[2022-07-04 20:17] VITALS: BP 112/74
[2022-07-05] VITALS (7 sets, daily range): BP systolic 99–133; BP diastolic 54–77
[2022-07-05] MEDS: PIPERACILLIN SODIUM/TAZOBACTAM 4.5 GM in NS (IVPB) 100 ML IV SCH ×3 (04:04→19:50)
[2022-07-05] MEDS: D5 1/2 NS W/KCL 20 MEQ/L 1,000 ML IV SCH ×4 (04:09→17:09)
[2022-07-05 06:13] LABS: HEMATOCRIT 38 % (40-54); HEMOGLOBIN 13.5 g/dL (13.3-17.7); MEAN CORPUSCULAR HEMOGLOBIN 34 pg (25-34); MEAN CORPUSCULAR HGB CONC 35 g/dL (32-36); MEAN CORPUSCULAR VOLUME 98 fL (80-99); MEAN PLATELET VOLUME 8.6 fL (9.0-12.2); PLATELET COUNT 647 10^3/uL (130-400)
[2022-07-05 06:40] LABS: ALBUMIN 2.9 GM/DL (3.2-4.5); BILIRUBIN,TOTAL 0.3 MG/DL (0.1-1.0); CREATININE SERUM 0.75 MG/DL (0.60-1.30); POTASSIUM 4.3 MMOL/L (3.6-5.0); TOTAL PROTEIN 6.6 GM/DL (6.4-8.2)
--- NOTE | 2022-07-05 07:26 | Progress Note - Surgery ---
JAYDEN BEAN 07/05/22 0726: Subjective Date Seen by a Provider: Jul 05, 2022 Time Seen by a Provider: 07:05 Subjective/Events-last exam Mr. Yuong is a 41 year old male being treated for pancreatitis. This morning patient has 1/10 abdominal pain located in his epigastrium. He tolertaed clear liquids yesterday consisting of broth, jello, and water. He denies nausea or vomiting. He denies increased abdominal pain after eating or drinking. He has not required pain medicine since 2199 on Jun. Denies cough, shortness of breath, or trouble breathing. Urinating okay. No bowel movements. Review of Systems General: No Chills, No Fatigue HEENT: No Head Aches, No Visual Changes Pulmonary: No Dyspnea, No Cough Cardiovascular: No: Chest Pain, Palpitations Gastrointestinal: Abdominal Pain; No: Nausea, Vomiting Neurological: No: Weakness, Confusion Focused Exam Time of Focused Exam: 18:45 Objective Exam Vital Signs Date Time Temp Pulse Resp B/P (MAP) Pulse Ox O2 Delivery O2 Flow Rate FiO2 07/05/22 03:43 36.0 60 16 133/77 (95) 97 Room Air 07/05/22 01:00 48 07/05/22 00:08 36.2 56 16 107/67 (80) 98 Room Air 07/04/22 20:20 Room Air 07/04/22 20:17 36.2 63 16 112/74 (87) 96 Room Air 07/04/22 19:00 57 07/04/22 16:20 36.3 68 16 113/72 (86) 98 Room Air 07/04/22 13:00 55 07/04/22 12:02 37.0 59 18 124/77 (93) 97 Room Air 07/04/22 09:37 36.1 52 96 21 07/04/22 09:15 Room Air 0.00 07/04/22 08:48 36.1 07/04/22 08:18 36.1 07/04/22 08:13 96 Room Air 0.00 07/04/22 07:56 36.1 52 20 107/67 (80) 96 Room Air I & O 07/05/22 07:00 Intake Total 5010 ml Balance 5010 ml Capillary Refill : Less Than 3 Seconds General Appearance: No Apparent Distress, WD/WN HEENT: Moist Mucous Membranes; No Pale Conjunctivae (L), No Pale Conjunctivae (R) Neck: Normal Inspection, Non Tender Respiratory: Chest Non Tender, Lungs Clear, Normal Breath Sounds, No Accessory Muscle Use, No Respiratory Distress Cardiovascular: Regular Rate, Rhythm, No Murmur, Normal Peripheral Pulses Peripheral Pulses: 2+ Radial Pulses (R), 2+ Radial Pulses (L) Gastrointestinal: soft; No distended, No guarding, No tenderness (No tenderness to palpation. Endorses subjective 1/10 abdominal pain at rest.) Neurologic/Psychiatric: Alert, Oriented x3, Normal Mood/Affect Skin: Normal Color, Warm/Dry Results Lab Laboratory Tests 07/05/22 05:30: White Blood Count 7.0, Red Blood Count 3.94L, Hemoglobin 13.5, Hematocrit 38L, Mean Corpuscular Volume 98, Mean Corpuscular Hemoglobin 34, Mean Corpuscular Hemoglobin Concent 35, Red Cell Distribution Width 12.5, Platelet Count 647H, Mean Platelet Volume 8.6L, Sodium Level 141, Potassium Level 4.3, Chloride Level 109H, Carbon Dioxide Level 24, Anion Gap 8, Blood Urea Nitrogen 4L, Creatinine 0.75, Estimat Glomerular Filtration Rate 116, BUN/Creatinine Ratio 5, Glucose Level 105, Calcium Level 9.0, Corrected Calcium 9.9, Total Bilirubin 0.3, Aspartate Amino Transf (AST/SGOT) 11, Alanine Aminotransferase (ALT/SGPT) 8, Alkaline Phosphatase 44, Total Protein 6.6, Albumin 2.9L Microbiology 07/01/22 Blood Culture - Preliminary, Resulted Staph, 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 Pain medication as needed No new pancreatic enzymes this morning Tolerating clears, start soft diet today. Consider d/c once tolerating JUAN ANTONIO CARNEY DO 07/05/22 1640: Subjective Time Seen by a Provider: 15:43 Subjective/Events-last exam Pt seen and examined, tolerating diet and denies abdominal pain. Review of Systems General: No Chills HEENT: No Head Aches, No Visual Changes Pulmonary: No Dyspnea, No Cough Cardiovascular: No: Chest Pain, Palpitations Gastrointestinal: Abdominal Pain; No: Nausea, Vomiting Objective Exam General Appearance: No Apparent Distress, WD/WN HEENT: Moist Mucous Membranes; No Pale Conjunctivae (L), No Pale Conjunctivae (R) Respiratory: Lungs Clear, Normal Breath Sounds, No Accessory Muscle Use, No Respiratory Distress Cardiovascular: Regular Rate, Rhythm, No Murmur Gastrointestinal: soft; No distended, No guarding, No tenderness (No tenderness to palpation. Endorses subjective 1/10 abdominal pain at rest.) Neurologic/Psychiatric: Alert, Oriented x3, Normal Mood/Affect Skin: Normal Color, Warm/Dry Assessment/Plan Assessment/Plan Assessment/Plan Pancreatitis - Aymlase and Lipase 158 and 115 yesterday Right sided abd pain - resolved Covid + Transition from IV Pip/tazo to oral abx, will increase to regular diet, Pain medication as needed. Will probably d/c tomorrow. Supervisory-Addendum Brief Verification & Attestation Participated in pt care: history, MDM, physical Personally performed: exam, history, MDM, supervision of care Care discussed with: Medical Student Procedures: n/a Verification and Attestation of Medical Student E/M Service A medical student performed and documented this service. I then reviewed and verified all information documented by the medical student and made modifications to such information, when appropriate. I personally performed a physical exam, medical decision making and then discussed any differences between the notes and made revisions as necessary to create one note. Juan Antonio Carney , 07/05/22 , 16:40 JAYDEN BEAN Jul 05, 2022 07:26 JUAN ANTONIO CARNEY DO Jul 05, 2022 16:40
[2022-07-05] MEDS: SIMETHICONE 80 MG (MYLICON) CHEW PO SCH ×4 (08:25→19:51)
[2022-07-06] MEDS: PIPERACILLIN SODIUM/TAZOBACTAM 4.5 GM in NS (IVPB) 100 ML IV SCH ×2 (04:13→12:34)
[2022-07-06 04:24] VITALS: BP 116/74
[2022-07-06 08:15] VITALS: BP 111/75
--- NOTE | 2022-07-06 08:31 | Progress Note - Surgery ---
JAYDEN BEAN 07/06/22 0831: Subjective Date Seen by a Provider: Jul 06, 2022 Time Seen by a Provider: 07:15 Subjective/Events-last exam Mr. Young is a 41 year old male being followed for pancreatitis. Yesterday he ate a solid meal for dinner with no pain, nausea, or vomiting. This morning he denies all abdominal pain and has no complaints or issues. No respiratory symptoms, cough, trouble breathing, or shortness of breath. He is ready to go home today. Review of Systems General: No Chills, No Fatigue HEENT: No Head Aches, No Visual Changes Pulmonary: No Dyspnea, No Cough Cardiovascular: No: Chest Pain, Palpitations Gastrointestinal: No: Nausea, Vomiting, Abdominal Pain Focused Exam Time of Focused Exam: 18:45 Objective Exam Vital Signs Date Time Temp Pulse Resp B/P (MAP) Pulse Ox O2 Delivery O2 Flow Rate FiO2 07/06/22 08:15 36.6 62 20 111/75 (87) 96 Room Air 07/06/22 07:18 55 07/06/22 04:24 36.8 51 18 116/74 (88) 96 Room Air 07/06/22 01:00 50 07/05/22 23:35 36.5 47 20 133/74 (93) 98 Room Air 07/05/22 20:14 36.4 67 16 99/54 (69) 97 Room Air 07/05/22 19:50 Room Air 07/05/22 19:00 67 07/05/22 16:22 36.6 53 16 121/73 (89) 97 Room Air 07/05/22 13:41 58 07/05/22 11:42 36.6 64 20 115/75 (88) 97 Room Air 07/05/22 08:36 36.6 59 20 109/71 (84) 98 Room Air I & O 07/06/22 06:59 Intake Total 3110 ml Balance 3110 ml Capillary Refill : Less Than 3 Seconds General Appearance: No Apparent Distress, WD/WN HEENT: Moist Mucous Membranes; No Pale Conjunctivae (L), No Pale Conjunctivae (R) Neck: Normal Inspection, Non Tender Respiratory: Chest Non Tender, Lungs Clear, Normal Breath Sounds, No Accessory Muscle Use, No Respiratory Distress Cardiovascular: Regular Rate, Rhythm, No Murmur Peripheral Pulses: 2+ Radial Pulses (R), 2+ Radial Pulses (L) Gastrointestinal: non tender, soft; No distended, No guarding Neurologic/Psychiatric: Alert, Oriented x3, Normal Mood/Affect Skin: Normal Color, Warm/Dry Results Lab Microbiology 07/01/22 Blood Culture - Preliminary, Resulted Staph, 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 Plan for discharge today JUAN ANTONIO CARNEY DO 07/06/22 1208: Subjective Time Seen by a Provider: 11:43 Subjective/Events-last exam Pt seen and examined; no changes, denies abdominal pain and is tolerating diet. Review of Systems General: No Chills HEENT: No Head Aches, No Visual Changes Pulmonary: No Dyspnea, No Cough Cardiovascular: No: Chest Pain, Palpitations Gastrointestinal: No: Nausea, Vomiting, Abdominal Pain Objective Exam General Appearance: No Apparent Distress, WD/WN HEENT: Moist Mucous Membranes; No Pale Conjunctivae (L), No Pale Conjunctivae (R) Respiratory: Lungs Clear, Normal Breath Sounds, No Accessory Muscle Use, No Respiratory Distress Cardiovascular: Regular Rate, Rhythm, No Murmur Gastrointestinal: non tender, soft; No distended, No guarding Assessment/Plan Assessment/Plan Assessment/Plan Pancreatitis Aymlase and Lipase 158 and 115 on JUL 19 Right sided abd pain - resolved Covid + Transition to oral abx d/c IVF Tolerating normal diet without pain, nausea, or vomiting. Plan for discharge today Supervisory-Addendum Brief Verification & Attestation Participated in pt care: history, MDM, physical Personally performed: exam, history, MDM, supervision of care Care discussed with: Medical Student Procedures: n/a Verification and Attestation of Medical Student E/M Service A medical student performed and documented this service. I then reviewed and verified all information documented by the medical student and made modifications to such information, when appropriate. I personally performed a physical exam, medical decision making and then discussed any differences between the notes and made revisions as necessary to create one note. Juan Antonio Carney , 07/06/22 , 12:08 JAYDEN BEAN Jul 06, 2022 08:31 JUAN ANTONIO CARNEY DO Jul 06, 2022 12:08
[2022-07-06] MEDS: SIMETHICONE 80 MG (MYLICON) CHEW PO SCH ×2 (08:47→12:34)
--- NOTE | 2022-07-06 12:10 | Discharge Inst-Surgical ---
Discharge Inst-Surgical Depart Medication/Instructions New, Converted or Re-Newed RX: Other (no new meds to take) Patient Instructions Follow up Appt: Make appointment for 1 week. [phone] Instructions: May shower in 24 hours, no tub bath or soaking. Use incentive spirometer at home as directed. No Smoking Symptoms to Report: Appetite Changes, Extremity Discoloration, Numbness/Tingling, Swelling Increased, Bleeding Excessive, Eyesight Changes, Pain Increased, Urine Color Change, Constipation(Persistent), Fever over 101 degree F, Pain/Pressure in chest, Urinating Difficulty, Cough Up/Vomit Blood, Heart Beat Irreg/Pounding, Pain/Pressure in jaw, Cramps in feet or legs, Lightheadedness, Pain/Pressure in shoulder, Diarrhea(Persistent), Memory Changes Suddenly, Questions/Concerns, Weight gain consecutive days, Dizziness/Fainting, Nausea/Vomiting, Shortness of Breath, Weight gain over 2 pounds If questions or concerns contact your physician Or seek help at emergency department. Activity Activity as Tolerated: Yes Driving Instructions: You May Drive Diet Discharge Diet: No Restrictions (avoid alcohol) Diet After 24 Hours: Clear Liquid if Nauseous If Any Problems/Questions/Issu: Contact Your Physician, Go to Emergency Room Skin/Wound Care Infection Signs and Symptoms: Increased Swelling, Temperature Above 101 F Bathing Instructions: DARWIN Tinajero DO Jul 06, 2022 12:10
[2022-07-06 15:21] VITALS: BP 111/75
--- NOTE | 2022-07-15 14:45 | Physician Query Clarification ---
PQ-Uncertain Diagnosis Admission/Discharge Admission Date: Jul 01, 2022 at 18:57 Discharge Date: Jul 06, 2022 at 15:22 Dr. Carney, The medical record reflects the following clinical scenario: History/Risk Factors: pancreatitis, peritonitis, covid Clinical Findings: T 37.6, P 94, R 20, blood culture - staph, coag neg Treatment: IV Piperacillin Question: Is sepsis a clinically valid diagnosis? Sepsis was documented in the ER record with no further documentation in the medical record. Please document a response in Progress Note or Discharge Summary. 1. Yes, clinically valid, condition resolved. 2. No, condition ruled out. 3. Other, with explanation of clinical findings. 4. Undetermined, no explanation for clinical findings. PHYSICIAN RESPONSE Diagnosis clinically valid: No, conditon ruled out (Pt had peritonitis from his pancreatitis and only 1 out 3 bottles positive for bacteria; I think this was a contaminant) In responding to this query, please exercise your independent professional judgment. The purpose of this communication is to more accurately reflect the complexity of your patients condition. The fact that a question is asked does not imply that any particular answer is desired or expected. Thank you for your timely response to this clarification. Requestors name: Ha THIS PHYSICIAN QUERY FORM IS A PERMANENT PART OF THE MEDICAL RECORD HA ORDOÑEZ Jul 15, 2022 14:45 DARWIN CARNEY DO Jul 20, 2022 14:22
== END 2022-07-06 15:22 | disposition home or self-care (01) | DRG 371 ==
LOC: EDUNIT# 16:53 → ER 16:55 → 4TH 18:57
PROVIDERS: ADMIT Surgery; ATTEND Surgery
PROC: 8E0ZXY6 Isolation (ICD-10-PCS; principal; 2022-07-01)
DX: K65.9 Peritonitis, unspecified (principal); U07.1 COVID-19; K86.1 Other chronic pancreatitis; F10.20 Alcohol dependence, uncomplicated; Y90.0 Blood alcohol level of less than 20 mg/100 ml; F17.210 Nicotine dependence, cigarettes, uncomplicated; F12.90 Cannabis use, unspecified, uncomplicated
CPT/HCPCS: 36415; 71045; 74022; 74176; 76705; 80053; 80306; 80320; 81000; 82150; 83605; 83690; 84145; 85025; 85027; 85610; 85730; 86141; 87040; 87636; 93005; 96361; 96365; 96375; 96376